=== PATIENT | male | born 1955 | race Caucasian/White ===

== ENCOUNTER → 2016-05-19 | Outpatient (CLI) | payer OTHER, BC ==
[2016-05-19 10:06] LABS: Basophils % (A) 1 %; CH 31.6; CHCM 32.6; Eosinophils # (A) 0.1 k/uL (0-0.7); Eosinophils % (A) 2 %; HCT 46.1 % (39.0-53.0); HDW 2.07; HGB 14.7 gm/dL (13.0-17.5); Luc # (Auto) 0.13; Luc % (Auto) 2; Lymphocytes # (A) 1.1 k/uL (1.0-4.8); Lymphocytes % (A) 19 %; MCHC 31.9 g/dL (31.0-37.0); MCV 97.3 fL (80.0-100.0); Mean Platelet Volume 6.5; Monocytes # (A) 0.4 k/uL (0-1.0); Monocytes % (A) 7 %; Neutrophils % (A) 69 %; RBC 4.73 m/uL (4.30-5.90); RDW 13.4 % (11.5-15.5); WBC 5.8 k/uL (3.8-10.6); WBC (Perox) 5.79
[2016-05-19 10:13] LABS: Partial Thromboplastin Time 24.7 sec (22.0-30.0)
[2016-05-19 10:22] LABS: ALT 30 U/L (21-72); AST 19 U/L (17-59); Alkaline Phosphatase 68 U/L (38-126); Anion Gap 10 mmol/L; Blood Urea Nitrogen 14 mg/dL (9-20); Calcium 9.4 mg/dL (8.4-10.2); Carbon Dioxide 25 mmol/L (22-30); Chloride 106 mmol/L (98-107); Glucose 87 mg/dL (74-99); Non-African American GFR(MDRD) >60 (>60 ml/min/1.73 sqM); Potassium 4.6 mmol/L (3.5-5.1); Sodium 141 mmol/L (137-145); Total Bilirubin 0.9 mg/dL (0.2-1.3)
== END | disposition home or self-care (01) ==
LOC: LABWHC1 09:00
PROVIDERS: ATTEND Family Medicine
DX: Z01.812 Encounter for preprocedural laboratory examination (principal)
CPT/HCPCS: 36415; 80053; 85025; 85610; 85730

== ENCOUNTER → 2016-05-24 | Outpatient (CLI) | payer OTHER, BC | END | disposition home or self-care (01) | LOC: LABPAT 14:20 | PROVIDERS: ATTEND Orthopaedic Surgery | DX: Z01.812 Encounter for preprocedural laboratory examination (principal) | CPT/HCPCS: 87070 ==

== ENCOUNTER 2016-05-31 05:54 | Inpatient (IN) | payer OTHER, BC ==
[2016-05-28 10:42] VITALS: BMI 24.4
--- NOTE | 2016-05-30 18:02 | HP ---
DATE OF ADMISSION: Clive Friedman is a 61-year-old patient seen with symptomatic left hip osteoarthritis. After having options regarding treatment discussed, he elected to proceed with direct anterior left total hip arthroplasty. Consent was obtained. Medical clearance provided by Dr. Bethel Grace. PAST MEDICAL HISTORY: Hypertension. PAST SURGICAL HISTORY: Right ankle surgery, right knee arthroscopy with ACL reconstruction, spine surgery. Daily medications: Simvastatin. ALLERGIES: None reported. SOCIAL HISTORY: Patient denies current tobacco use. Physical evaluation of the left hip: He has limited range of motion with severe pain. There is diffuse weakness about the hip girdle. There is diffuse tenderness about the hip girdle. He has a positive impingement sign. Left lower extremity is 1 inch shorter than the right. Straight-leg raise is negative. His distal neurovascular exam is intact. Radiographs of the left hip reveal severe osteoarthritis. IMPRESSION: Left hip osteoarthritis. PLAN: Direct anterior left total hip arthroplasty.
[~2016-05-31 05:54] MED LIST: ACETAMINOPHEN TAB 500 MG TAB PO ONE; DEXAMETHASONE SOD PHOSPHATE 10 MG/ML 1 ML VIAL IV ONE; HYDROmorphone 1 MG/ML 1 ML SYRINGE IVP PRN; LACTATED RINGERS 1,000 ML IV SCH; MELOXICAM 7.5 MG TAB PO ONE; MIDAZOLAM 2 MG/2 ML VIAL IV PRN; ONDANSETRON 4 MG/2 ML VIAL IVP ONE; TRANEXAMIC ACID 1,000 MG in SODIUM CHLORIDE 0.9% 100 ML IVPB ONE; ceFAZolin 2 GM in SODIUM CHLORIDE 0.9% 100 ML IVPB ONE
[2016-05-31] MEDS ORDERED: LIDOCAINE 1% 20 ML VIAL (10MG/ML) FOR IV START INTRADERMA ONE (06:54)
[2016-05-31 07:05] VITALS: RESP 16
[2016-05-31] MEDS ORDERED: SODIUM CHLORIDE 0.9% 100 ML BAG ONE (07:28)
[2016-05-31] MEDS ORDERED: TRANEXAMIC ACID 1,000 MG/10 ML VIAL ONE (07:28)
[2016-05-31] MEDS ORDERED: PROPOFOL 10 MG/ML 20 ML VIAL IV ONE (07:28)
[2016-05-31] MEDS ORDERED: fentaNYL (PF) 50 MCG/ML 2 ML AMP ONE (07:28)
[2016-05-31] MEDS ORDERED: MIDAZOLAM 2 MG/2 ML VIAL ONE (07:28)
[2016-05-31] MEDS ORDERED: ROPIVACAINE 246.25 MG, EPINEPHrine 0.5 MG, KETOROLAC 30 MG, cloNIDine HCL/PF 80 MCG, WA... MISCELLANE ONE ×5 (08:00)
[2016-05-31] MEDS ORDERED: ceFAZolin 3,000 MG in SODIUM CHLORIDE 0.9% IRRIGATIO 3,000 ML IRRIGATION ONE (08:08)
[2016-05-31] MEDS ORDERED: LACTATED RINGERS 1,000 ML IV ONE (08:56)
[2016-05-31] MEDS ORDERED: NALOXONE 0.4 MG/ML 1 ML VIAL IV PRN (09:38)
[2016-05-31] MEDS ORDERED: HYDROmorphone 1 MG/ML 1 ML SYRINGE IVP PRN ×3 (09:38)
[2016-05-31] MEDS ORDERED: ONDANSETRON 4 MG/2 ML VIAL IVP PRN (09:38)
[2016-05-31] MEDS ORDERED: HYDROcodone/APAP 7.5-325MG 1 EACH TAB PO PRN (09:38)
--- NOTE | 2016-05-31 09:38 | P.OP ---
Date of Procedure: 05/31/16 Preoperative Diagnosis: Left hip osteoarthritis Postoperative Diagnosis: Left hip osteoarthritis Procedure(s) Performed: Direct anterior left total hip arthroplasty Implants: 1. Depuy Corail cementless femoral stem KA size 12 with collar 2. Depuy pinnacle acetabular shell 58 mm 3. Depuy pinnacle polyethylene acetabular liner +4 neutral 36 mm ID 58 mm OD 4. Biolox delta ceramic femoral head +1.536 mm Anesthesia: local, spinal Surgeon: Hay Hope Senior Treasury Analyst #1: Lex Barajas Estimated Blood Loss (ml): 250 Pathology: other (Femoral head) Condition: stable Disposition: PACU Indications for Procedure: 61-year-old patient seen with symptomatic left hip osteoarthritis. After having treatment options discussed, he elected to proceed with left total hip arthroplasty. Operative Findings: See description of procedure Description of Procedure: The patient was taken to the operative suite. Patient underwent a spinal anesthetic by the department of anesthesia. Patient was then transferred to the [place] table. Patient was given preoperative IV antibiotics and TXA. Both lower extremities were placed in standard leg spars. The hip was then prepped and draped in the normal sterile orthopedic fashion. A standard anterior incision was made beginning 3 cm lateral and 1 cm distal to the ASIS extending 10 cm. Dissection was then carried down through the subcutaneous soft tissues down to the fascia overlying the tensor fascia lulu. An incision was now made through the fascia. Careful dissection was taken down exposing the tensor fascia lulu muscle. A Cobra retractor was now placed along the medial femoral neck and a second one along the lateral femoral neck. The venous circumflex vessels were now identified, cauterized and clipped. We identified the anterior hip capsule. An incision was made through the hip capsule along the lateral border. Tag sutures were then placed along the anterior capsule and lateral capsule. We then performed a capsulotomy. Retractors were now placed around the femoral neck itself. A Cobra retractor was now placed along the anterior acetabulum. Good exposure was now noted of the femoral head/neck complex. Residual labrum was debrided out. We placed the extremity into 3 turns of fine traction. We were then able to introduce a skid in between the femoral head and acetabulum. A placed a awl into the femoral head. We took 2 turns of traction off the extremity. Rotation was now released. The femoral head was then dislocated without difficulty. Additional releasing was performed of the capsule. The head was then reduced. All traction was released. A femoral neck cut was now made with a sagittal saw. It was completed with an osteotome at the lateral neck area. The femoral head was now removed without difficulty. There was advanced osteoarthritis of both the femoral head and acetabulum The extremity was now rotated to 60 of external rotation. It was locked in position. Residual labrum was now debrided out. Serial reaming was performed of the acetabulum. Once we reached the appropriate size and a trial was position and fit nicely. The appropriate size was now chosen opened and made available. The wound was irrigated with pulse lavage mechanical irrigation. It was introduced into the acetabulum without difficulty. The C-arm/fluoroscopy was now brought into the operative field. We made sure we had a true AP pelvic view. We now under direct C-arm/ fluoroscopy introduced into the acetabular component with appropriate version and inclination. It was well seated and stable. The C-arm was pulled back. An appropriate liner was introduced and clicked into position. It was felt to be stable. At this point retractors were removed. The extremity was now placed into 125 external rotation with no traction. The leg was now dropped to the ground and adducted. Appropriate retractors were now positioned along the proximal femur. We also placed our femoral look into position. Additional capsular releasing was performed to gain access to the proximal femur. We now used a box osteotome. A canal finder was now utilized. Serial broaching was now performed until we reached the appropriate size with good overall rotational stability. Appropriate calcar planing was performed. A trial head/ neck was placed into position. The hip was now reduced. The C-arm/fluoroscopy was brought back into the operative field. A spot film was obtained of the nonoperative hip. A spot film was obtained of the trial components. Overlays were performed, we noted good overall alignment and positioning for determining leg length. The C-arm/fluoroscopy was pulled back. Retractors were repositioned and the hip was dislocated. The leg was again taken down to the ground and adducted. Appropriate retractors were repositioned as well as the femoral hook. All trial components were removed. The femoral implant was opened along with the femoral head. The wound was irrigated with pulse lavage mechanical irrigation. The femoral implant was introduced with good purchase and fixation noted. The deep soft tissues were infiltrated with local analgesic. The femoral head was introduced with good positioning and fixation noted. Retractors were now removed. The hip was now reduced. There appeared be good positioning of the hip. This was confirmed via fluoroscopy and a spot image was obtained to document this. A second gram of TXA was given. Bipolar cautery had been utilized intermittently through the procedure for hemostasis. The wound was irrigated copiously with pulse lavage mechanical irrigation. The superficial soft tissues were infiltrated local analgesic. The fascia was repaired with Vicryl suture. The subcutaneous soft tissues were repaired in layers with Vicryl suture. The skin was approximated with pernio/Dermabond. Sterile dressings were applied. Patient was then awakened, transferred to a bed and taken to recovery in stable condition. Hamzah BASSETT assisted with the procedure.
--- NOTE | 2016-05-31 09:50 | FL ---
EXAMINATION TYPE: FL guidance operating room, XR Hip Limited one view LT DATE OF EXAM: 05/31/2016 9:18 AM COMPARISON: NONE HISTORY: 61-year-old male anterior left hip replacement FINDINGS: Single anterior intraoperative fluoroscopic image after placement of left hip total arthroplasty. Ove rall alignment appears grossly anatomic. FLUOROSCOPY Fluoroscopy time of 20 seconds was used during left hip replacement. 1 image/s document/s the proced ure. IMPRESSION: Intraoperative fluoroscopy as above.
[2016-05-31] MEDS: MULTIVITAMINS, THERA 1 EACH TAB PO SCH (10:57)
[2016-05-31] MEDS: LACTATED RINGERS 1,000 ML IV SCH ×2 (11:00→23:19)
[2016-05-31] MEDS: traMADol 50 MG TAB PO SCH ×3 (12:06→21:34)
[2016-05-31] MEDS: ceFAZolin 2 GM in SODIUM CHLORIDE 0.9% 100 ML IVPB SCH (13:00)
[2016-05-31] MEDS: HYDROcodone/APAP 7.5-325MG 1 EACH TAB PO PRN ×2 (14:39→23:17)
--- NOTE | 2016-05-31 16:34 | P.DS ---
Providers Date of admission: 05/31/16 05:54 Expected date of discharge: 06/01/16 Attending physician: Hay Hope Consults: 05/31/16 09:38 Consult Physician Routine Consulting Provider: Manjit Perez Consult Reason/Comments: Medical management Do you want consulting provider notified?: Yes Primary care physician: Bethel [facility]izcaino [facility] Course: Date of admission: 05/31/2016 Date of discharge: 06/01/2016 Admission diagnosis: Status post direct anterior left total hip arthroplasty Discharge diagnosis: Same Attending physician: Dr. Hope Surgical procedures: Direct anterior left total hip arthroplasty Brief history: Patient is a 61-year-old male with a history of progressive primary left hip osteoarthritis. At this point patient has failed conservative treatment measures and has opted to proceed with a elective left total hip arthroplasty. Hospital course: Details of patient's surgery can be found in operative report. Patient tolerated the procedure well and was subsequently transported to orthopedic floor. Patient's orthopeidc and medical care was provided daily. Patient had daily laboratory tests performed for evaluation of overall blood counts. Patient had daily physical therapy to include strengthening range of motion as well as education with walker ambulation. Patient was treated with Lovenox for their postoperative DVT prophylaxis during their inpatient stay. Patient was noted to have a relatively uneventful postoperative course. Patient reported satisfactory pain control with oral pain medications by postoperative day 0. Patient showed satisfactory progress with physical therapy. Patient moved steadily through the program and had no difficulty meeting the goals by postoperative day 1. Given patient's otherwise satisfactory course and having met physical therapy goals, plan is to discharge patient home on postoperative day 1. Discharge condition/disposition: Patient will be discharged home in stable condition. Discharge medications: Instructions are given on resumption of patient's normal daily medications per primary care recommendation, in addition patient will be prescribed [place] 7.5 mg/325 mg, tramadol 50 mg, Colace 100 mg, Pepcid 20 mg, aspirin 325 mg. Discharge instructions: 1. Wound care and infection precautions, keep incision dry and covered while showering, no lotions, creams, moisturizers. No soaking, tubs, pools, hottubs. Do not scrub over the incision. 2. Weight-bear as tolerated with walker / cane until follow-up. 3. Ice and elevate when necessary. Do not exceed 20 minutes per hour with ice pack. 4. Utilize compression sleeve until seen at first follow up appointment. 5. Visiting nursing care. 6. Home physical therapy. 7. Pain meds and anticoagulants per prescription. 8. Pain medication has potential to cause constipation. Increase oral fluid and fiber intake. Contact primary care provider if you have not had a bowel movement within 48 hours after discharge 9. No anti-inflammatory medication until discussed at first post operative visit, this including Motrin, Aleve, Mobic, Diclofenac. 10. Follow up in office at 2 weeks postop with Hamzah Barajas PA-C 11. Follow up with your primary care doctor 7-10 days after discharge. 12. Contact [facility] with any questions, . Procedures: Direct anterior total left hip arthroplasty Patient Condition at Discharge: Good Plan - Discharge Summary New Discharge Prescriptions: Aspirin 325 mg PO BID #60 tab Docusate [Colace] 100 mg PO DAILY #30 capsule Famotidine [Pepcid] 20 mg PO DAILY #30 tablet HYDROcodone/APAP 7.5-325MG [[place]end[place] 7.5] 1 - 2 each PO Q6HR PRN #40 tab PRN Reason: Pain traMADol HCl [Ultram] 50 mg PO Q6H PRN #40 tab PRN Reason: Pain Discharge Medication List Lisinopril [Prinivil] 5 mg PO DAILY 01/13/16 [History] Multivitamins, Thera [Multivitamin] 1 tab PO DAILY 01/13/16 [History] Simvastatin [Zocor] 10 mg PO DAILY 01/13/16 [History] Glucosamine Sulfate 500 mg PO DAILY 05/28/16 [History] Aspirin 325 mg PO BID #60 tab 06/01/16 [Rx] Docusate [Colace] 100 mg PO DAILY #30 capsule 06/01/16 [Rx] Famotidine [Pepcid] 20 mg PO DAILY #30 tablet 06/01/16 [Rx] HYDROcodone/APAP 7.5-325MG [[place] 7.5] 1 - 2 each PO Q6HR PRN #40 tab 06/01/16 [ Rx] traMADol HCl [Ultram] 50 mg PO Q6H PRN #40 tab 06/01/16 [Rx] Follow up Appointment(s)/Referral(s): Lex Barajas PAC [[facility]] - 06/16/16 2:10 pm Activity/Diet/Wound Care/Special Instructions: Orthopedic Discharge Instructions: 1. Wound care and infection precautions, keep incision dry and covered while showering, no lotions, creams, moisturizers. No soaking, pools, hot tubs. Do not scrub over incision. 2. Weight-bear as tolerated with walker / cane until follow-up. 3. Ice and elevate when necessary. Do not exceed 20 minutes per hour with ice pack. 4. Utilize compression sleeve until seen at first follow up appointment. 5. Visiting nursing care. 6. Home physical therapy. 7. Pain meds and anticoagulants per prescription. 8. Pain medication has potential to cause constipation. Increase oral fluid and fiber intake. Contact primary care provider if you have not had a bowel movement within 48 hours after discharge. 9. No anti-inflammatory medication until discussed at first post operative visit, this including Motrin, Aleve, Mobic, Diclofenac. 10. Follow up in office at 2 weeks postop with Hamzah Barajas PA-C 11. Follow up with your primary care doctor 7-10 days after discharge. 12. Contact [facility] with any questions, . [facility]- walker to be delivered to room from [facility] - Discharge Disposition: HOME WITH HOME HEALTH SERVICES
[2016-05-31] MEDS ORDERED: SENNOSIDES-DOCUSATE SODIUM 1 EACH TAB PO SCH (21:00)
[2016-06-01] MEDS: ceFAZolin 2 GM in SODIUM CHLORIDE 0.9% 100 ML IVPB SCH (00:54)
[2016-06-01] MEDS: hydrOXYzine PAMOATE 25 MG CAP PO PRN ×2 (07:08→14:15)
[2016-06-01] MEDS: HYDROcodone/APAP 7.5-325MG 1 EACH TAB PO PRN ×2 (07:08→14:14)
--- NOTE | 2016-06-01 07:29 | CONS ---
DATE OF CONSULTATION: 05/31/2016 REASON FOR CONSULTATION: Medical management requested Dr. Hope. CONSULTATION: This is a pleasant 60-year-old gentleman of Dr. Grace. Has undergone a left total hip arthroplasty. Pain is well controlled. Actually had his supper. Sitting up, no chest pain or shortness of breath. No nausea or vomiting. Patient's chronic stable medical conditions include hyperlipidemia, hypertension, arthritis in other joints, including the thumb and the knee. REVIEW OF SYSTEMS: CONSTITUTIONAL: None. HEENT: None. RESPIRATORY: None. CARDIOVASCULAR: None. GASTROINTESTINAL: None. GENITOURINARY: None. MUSCULOSKELETAL: As above including pain in the thumb and the right knee. DERMATOLOGICAL: None. HEMATOLOGICAL: None. LYMPHATIC: None. PSYCHIATRY: None. NEUROLOGICAL: Occasionally BPPV symptoms. Past medical history of hypertension, hyperlipidemia, osteoarthritis, BPPV. PAST SURGICAL HISTORY: Back surgery, orthopedic surgery, tonsillectomy, ACL right knee with 2 screws, right ankle fracture with pin and screws, broken, no surgery. SOCIAL HISTORY: Patient is . Smoked a pack half for 20 years; stopped 15 years ago. 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 FAMILY HISTORY: Breast cancer. HOME MEDICATIONS: 1. Zocor 10 mg p.o. daily. 2. Naproxen 440 mg p.o. b.i.d. p.r.n. 3. Multivitamin 1 tablet p.o. daily. 4. Prinivil 5 mg p.o. daily. 5. Glucosamine 500 mg p.o. daily. 6. Aspirin 81 mg p.o. daily. ALLERGIES: None. On examination, temperature 97.9, pulse 67, respirations 16, blood pressure 135/78, pulse ox 98% on room air. GENERAL APPEARANCE: Average build, sitting up in bed, comfortable, propped up, awake, comfortable. EYES: Pupils equal. Conjunctivae normal. HEENT: Oral cavity normal. NECK: JVD not raised. Mass not palpable. RESPIRATORY: Effort normal. Lungs are clear. CARDIOVASCULAR: First and second sounds normal. No edema. ABDOMEN: Soft, nontender. Liver and spleen not palpable. LYMPHATIC: No lymph node palpable in the neck or axillae. PSYCHIATRY: Alert and oriented x3. Mood and affect normal. NEUROLOGICAL: Pupils equal. Cranial nerves grossly intact. Power and sensation grossly intact. MUSCULOSKELETAL: Evidence of osteoarthritis in the right knee. Left knee has dressing in place. INVESTIGATIONS: No blood work from today. ASSESSMENT: 1. Left total hip arthroplasty. 2. Essential hypertension. 3. Hyperlipidemia. 4. Primary osteoarthritis of the right knee. 5. Benign paroxysmal positional vertigo history. PLAN: Patient's pain is controlled. Home medications will be resumed. Getting IV fluids. Patient on DVT prophylaxis with Lovenox. Care was discussed with the patient. Patient should follow up with Dr. Grace on discharge. Thank you, Dr. Hope.
[2016-06-01 07:34] LABS: Basophils % (A) 0 %; CH 31.3; CHCM 31.9; Eosinophils # (A) 0.1 k/uL (0-0.7); Eosinophils % (A) 1 %; HCT 37.2 % (39.0-53.0); HDW 2.07; HGB 11.8 gm/dL (13.0-17.5); Luc # (Auto) 0.12; Luc % (Auto) 1; Lymphocytes # (A) 1.1 k/uL (1.0-4.8); Lymphocytes % (A) 13 %; MCH 31.3 pg (25.0-35.0); MCHC 31.7 g/dL (31.0-37.0); MCV 98.6 fL (80.0-100.0); Mean Platelet Volume 6.4; Monocytes # (A) 0.6 k/uL (0-1.0); Monocytes % (A) 7 %; Neutrophils # (A) 6.6 k/uL (1.3-7.7); Neutrophils % (A) 78 %; RBC 3.77 m/uL (4.30-5.90); RDW 12.9 % (11.5-15.5); WBC 8.4 k/uL (3.8-10.6); WBC (Perox) 9.05
[2016-06-01] MEDS ORDERED: ATORVASTATIN 10 MG TAB PO SCH (09:00)
[2016-06-01] MEDS ORDERED: FAMOTIDINE 20 MG TAB PO SCH (09:00)
[2016-06-01] MEDS ORDERED: ENOXAPARIN 40 MG/0.4 ML SYRINGE SQ SCH (09:00)
[2016-06-01] MEDS ORDERED: MELOXICAM 7.5 MG TAB PO SCH (09:00)
[2016-06-01] MEDS ORDERED: LISINOPRIL 5 MG TAB PO SCH (09:00)
[2016-06-01] MEDS: traMADol 50 MG TAB PO SCH ×2 (09:46→13:17)
[2016-06-01] MEDS: LACTATED RINGERS 1,000 ML IV SCH (11:28)
--- NOTE | 2016-06-01 11:44 | P.PN ---
Subjective Principal diagnosis: Status post left total hip arthroplasty Patient is seen today resting in his hospital chair, he appears to be in no acute distress, his pain is controlled. He's been ambulating well on his own. Urinary cath has been removed. Denies headaches, lightheadedness, chest pain, shortness of breath. Objective - Vital Signs Vital signs: Vital Signs Temp 96.8 F L 06/01/16 08:13 Pulse 82 06/01/16 08:13 Resp 16 06/01/16 08:13 BP 165/77 06/01/16 08:13 Pulse Ox 97 06/01/16 08:13 Intake & Output 05/31/16 06/01/16 06/01/16 18:59 06:59 18:59 Intake Total 1201 590 Output Total 800 1100 1150 Balance 401 -510 -1150 Weight 83.915 kg Intake: IV 1201 Oral 590 Output: Urine 550 1100 1150 Uretheral (Carvalho) 1100 700 Estimated Blood Loss 250 Other: Voiding Method Indwelling Catheter Indwelling Catheter - Exam Left lower extremity: Incisions clean, dry and intact. Minimal soft tissue swelling present around the head. Anterior posterior arms of the upper leg are soft, calf is supple no tenderness with palpation. Plantar flexion, dorsiflexion, EHL, FHL are intact. Sensory exam to light touch throughout the extremities intact, dorsal pedis pulses 2+. - Labs CBC & Chem 7: 06/01/16 06:49 Labs: Abnormal Lab Results - Last 24 Hours (Table) 06/01/16 Range/Units 06:49 RBC 3.77 L (4.30-5.90) m/uL Hgb 11.8 L (13.0-17.5) gm/dL Hct 37.2 L (39.0-53.0) % Assessment and Plan Plan: Assessment: 1. Postop day #1 status post left total hip arthroplasty Plan: 1. Pain control, we'll discharge home on oral medications 2. Wound care was discussed with patient 3. Home therapy and nursing 4. GI and DVT prophylaxis, we'll discharge home on aspirin 325 mg twice a day 5. Medical recommendations 6. Discharge planning: We'll discharge patient home likely today Time with Patient: Less than 30
[2016-06-01] MEDS: MULTIVITAMINS, THERA 1 EACH TAB PO SCH (11:51)
[2016-06-01 15:26] VITALS: BP 131/73; TEMP 98.4
[2016-06-01 16:21] VITALS: PULSE 79
[2016-06-01] MEDS ORDERED: TEMAZEPAM 15 MG CAP PO PRN (22:00)
--- NOTE | 2016-06-02 22:04 | PN ---
DATE OF SERVICE: 06/01/2016 PRESENTING COMPLAINT: Left hip surgery. INTERVAL HISTORY: This patient was seen by me on 06/01/16, status post left hip surgery. Pain is doing much better. Tolerating his diet. Up and about. Tolerating ( ) no chest pain. Review systems done for constitutional, cardiovascular, GI, pulmonary, musculoskeletal; relevant findings as above. Current medications are reviewed. On examination, temperature 96.8, pulse 82, respirations 16, blood pressure 165/77, pulse ox 97%. GENERAL APPEARANCE: Sitting up, comfortable. EYES: Pupils equal. Conjunctivae normal. NECK: JVD not raised. Mass not palpable. RESPIRATORY: Effort normal. Lungs are clear. CARDIOVASCULAR: First and second sounds normal. No edema. ABDOMEN: Soft, nontender. Liver and spleen not palpable. PSYCHIATRY: Alert and oriented x3. Mood and affect normal. INVESTIGATIONS: Hemoglobin 11.8. ASSESSMENT: 1. Left total hip arthroplasty. 2. Essential hypertension. 3. Hyperlipidemia. 4. Primary osteoarthritis of the right knee. 5. Benign paroxysmal positional vertigo, history of. PLAN: Continues to do well. Continue current medication and treatment plan.
== END 2016-06-01 17:30 | disposition home health service (06) | DRG 470 ==
LOC: 2ORMAIN 05:54 → 3SUR 09:58
PROVIDERS: ADMIT Orthopaedic Surgery; ATTEND Orthopaedic Surgery
PROC: 0SRB04A Replacement of Left Hip Joint with Ceramic on Polyethylene Synthetic Substitute, Uncemented, Open Approach (ICD-10-PCS; principal; 2016-05-31 07:30)
DX: M16.12 Unilateral primary osteoarthritis, left hip (principal); I10 Essential (primary) hypertension; M25.852 Other specified joint disorders, left hip; M21.752 Unequal limb length (acquired), left femur; R53.1 Weakness; M19.049 Primary osteoarthritis, unspecified hand; E78.5 Hyperlipidemia, unspecified; H81.10 Benign paroxysmal vertigo, unspecified ear; M17.11 Unilateral primary osteoarthritis, right knee; Z80.3 Family history of malignant neoplasm of breast; Z79.899 Other long term (current) drug therapy; Z87.891 Personal history of nicotine dependence; Z79.82 Long term (current) use of aspirin; Z79.1 Long term (current) use of non-steroidal anti-inflammatories (NSAID); Z87.81 Personal history of (healed) traumatic fracture
CPT/HCPCS: 73501; 85025; 86850; 86900; 86901; 88300

== ENCOUNTER → 2017-11-14 | Outpatient (CLI) | payer OTHER, BC ==
--- NOTE | 2017-11-14 22:43 | MR ---
EXAMINATION TYPE: MR shoulder RT wo con DATE OF EXAM: 11/14/2017 COMPARISON: Outside shoulder x-ray November 01, 2017 HISTORY: Pain in right shoulder for one year. History of recent injury 3-4 weeks ago. TECHNIQUE: Multiplanar, multisequence imaging of the right shoulder is performed without contrast. FINDINGS: Rotator Cuff: There is a full-thickness retracted tear supraspinatus tendon retracted roughly 1.5 cm from humeral head attachment paracoronal image 14. Infraspinatus tendon is intact. There is some incr eased signal along the articular surface noted. Subscapularis tendon is intact. Rotator cuff muscle b ulk is preserved. Acromioclavicular Joint: There is abnormal AC joint widening with inferior margin of the distal clavi marisol roughly 5 to 6 mm superiorly displaced inferior margin of acromion. Suspect old injury. Glenohumeral Joint: There is moderate glenohumeral joint effusion. Moderate to severe Joint space los s is present. No significant spurring is seen. Labrum: Increased signal and blunted labrum likely reflects degenerative tear. Biceps Tendon: The long head of biceps is identified in normal location within bicipital groove. Medi al displacement is present. Intra-articular portion is not well seen. Bone marrow signal: No focal abnormal marrow signal is appreciated. Other: Focal fluid anterior to acromion is noted. Increased fluid subdeltoid/subacromial bursa is pre sent. IMPRESSION: Full-thickness retracted tear of supraspinatus tendon. Long head biceps tendon dislocatio n. Suspect remote AC joint separation injury. Glenohumeral joint arthropathy as detailed above.
== END | disposition home or self-care (01) ==
LOC: RADMRIMAIN 10:55
PROVIDERS: ATTEND Orthopaedic Surgery
DX: S46.811A Strain of other muscles, fascia and tendons at shoulder and upper arm level, right arm, initial encounter (principal); M19.011 Primary osteoarthritis, right shoulder

== ENCOUNTER → 2018-01-09 | Outpatient (CLI) | payer OTHER, BC ==
[2018-01-09 08:57] LABS: Basophils % (A) 1 %; Eosinophils # (A) 0.2 k/uL (0-0.7); Eosinophils % (A) 4 %; HCT 43.4 % (39.0-53.0); Lymphocytes # (A) 1.3 k/uL (1.0-4.8); Lymphocytes % (A) 26 %; MCHC 32.3 g/dL (31.0-37.0); Mean Platelet Volume 6.2; Monocytes # (A) 0.3 k/uL (0-1.0); Monocytes % (A) 7 %; Neutrophils # (A) 3.1 k/uL (1.3-7.7); Neutrophils % (A) 61 %; Platelet Count 279 k/uL (150-450); RBC 4.53 m/uL (4.30-5.90); RDW 12.9 % (11.5-15.5); WBC 5.1 k/uL (3.8-10.6)
[2018-01-09 09:16] LABS: Potassium 4.7 mmol/L (3.5-5.1)
== END ==
LOC: LABPAT 08:09
PROVIDERS: ATTEND Orthopaedic Surgery
DX: Z01.818 Encounter for other preprocedural examination (principal); Z01.812 Encounter for preprocedural laboratory examination; M75.41 Impingement syndrome of right shoulder
CPT/HCPCS: 80051; 85025; 93005

== ENCOUNTER 2018-01-18 07:35 | Day surgery (SDC) | payer OTHER, BC ==
--- NOTE | 2018-01-17 14:07 | HP ---
HISTORY AND PHYSICAL DATE OF SERVICE: 01/18/2018 Clive Friedman is a 62-year-old patient seen with progressive right shoulder pain. After treatment options were discussed with him. He elected to proceed with right shoulder arthroscopy. Consent regarding the procedure was obtained. PAST MEDICAL HISTORY: Hypertension, hyperlipidemia. PAST SURGICAL HISTORY: Right knee arthroscopy, nasal surgery, spinal surgery. DAILY MEDICATIONS: 1. Aspirin. 2. Glucosamine. 3. Simvastatin. ALLERGIES: None reported. SOCIAL HISTORY: Patient denies tobacco use. PHYSICAL EVALUATION RIGHT SHOULDER: Flexion 130 degrees, abduction 120 degrees, external rotation is 40 degrees with weakness. There is tenderness along the anterolateral acromion rotator cuff insertion site. Impingement sign is positive at 90 degrees. Drop-arm sign is positive. Distal neurovascular exam is intact. RADIOGRAPHS OF THE RIGHT SHOULDER: Revealed a type 2 anterior acromion. Cystic changes of the tuberosity. A right shoulder MRI revealed retracted rotator cuff tear, biceps tendon dislocation, moderate glenohumeral osteoarthritis. IMPRESSION: 1. Right shoulder impingement with rotator cuff tear. 2. Hypertension. 3. Hyperlipidemia. PLAN: Right shoulder arthroscopy with subacromial decompression, possible arthroscopic rotator cuff repair and debridement. MMODL / IJN: [id number] /
[~2018-01-18 07:35] MED LIST changes: -ACETAMINOPHEN TAB 500 MG TAB PO ONE; +LIDOCAINE 1% 20 ML VIAL (10MG/ML) FOR IV START INTRADERMA PRN; -MELOXICAM 7.5 MG TAB PO ONE; -MIDAZOLAM 2 MG/2 ML VIAL IV PRN; +SCOPOLAMINE 1.5MG/72HR PATCH TRANSDERM ONE; -TRANEXAMIC ACID 1,000 MG in SODIUM CHLORIDE 0.9% 100 ML IVPB ONE; -ceFAZolin 2 GM in SODIUM CHLORIDE 0.9% 100 ML IVPB ONE; +ceFAZolin IN SWFI 2 GM/20 ML SYRINGE IVP ONE
[2018-01-18] MEDS ORDERED: fentaNYL (PF) 50 MCG/ML 2 ML AMP IV ONE (08:48)
[2018-01-18] MEDS ORDERED: MIDAZOLAM 2 MG/2 ML VIAL IV ONE (08:48)
--- NOTE | 2018-01-18 09:56 | P.ONQ ---
Anesthesiology Proc Note - PNB - Peripheral Nerve Block Performed Right Interscalene Single Time Out Performed: Yes Procedure Start Time: 08:48 Indication: Acute Post-Operative Pain Specifically requested for management of pain by DrPablo: Hay Hope Sedation Type: Awake Preparation: Sterile Prep Position: Supine Catheter: None Needle Types: Other (see comment) (Pajunk) Needle Size: 50mm (2") Needle Gauge: 21 Technique: Ultrasound Injectate: 0.5% Ropivacaine (see comment for volume) (25cc) Blood Aspirated: No Pain Paresthesia on Injection Noted: No Resistance on Injection: Normal Events: Uneventful and Well Tolerated
[2018-01-18] MEDS ORDERED: ROPIVACAINE 5 MG/ML 30 ML VIAL ONE (10:22)
[2018-01-18] MEDS ORDERED: PROPOFOL 10 MG/ML 20 ML VIAL IV ONE (10:22)
[2018-01-18] MEDS ORDERED: ePHEDrine SULFATE/0.9% NACL/PF 50 MG/5 ML SYRINGE IV ONE (10:22)
[2018-01-18] MEDS ORDERED: fentaNYL (PF) 50 MCG/ML 2 ML AMP ONE (10:22)
[2018-01-18] MEDS ORDERED: SUCCINYLCHOLINE CHLORIDE VIAL 200 MG/10 ML VIAL IV ONE (10:22)
[2018-01-18] MEDS ORDERED: LIDOCAINE 1% INJ 10MG/ML (20 ML MDV) ONE (10:22)
[2018-01-18] MEDS ORDERED: MIDAZOLAM 2 MG/2 ML VIAL ONE (10:22)
[2018-01-18] MEDS ORDERED: PHENYLEPHRINE-0.9% NACL SYG 1 MG/10 ML SYRINGE ONE (10:22)
--- NOTE | 2018-01-18 12:07 | P.OP ---
Date of Procedure: 01/18/18 Preoperative Diagnosis: Right shoulder impingement Postoperative Diagnosis: 1. Right shoulder rotator cuff tear 2. Right shoulder impingement 3. Right shoulder superficial labral tear Procedure(s) Performed: 1. Right shoulder arthroscopic rotator cuff repair 2. Right shoulder arthroscopic subacromial decompression 3. Right shoulder arthroscopic debridement labral tear Implants: 4Arthrex swivel lock anchors Anesthesia: GETA, regional (Interscalene block) Surgeon: Hay Hope Editor Producer #1: Lex Barajas Estimated Blood Loss (ml): 10 Pathology: none sent Condition: stable Disposition: PACU Indications for Procedure: 62-year-old patient seen with progressive right shoulder pain. After treatment options were discussed, he elected to proceed with arthroscopy. Operative Findings: see description of procedure Description of Procedure: Patient underwent an interscalene block by department of anesthesia. The patient was then taken to the operative suite. The patient underwent a general anesthetic by the department of anesthesia. The patient was placed into a lateral position and secured. There was appropriate padding of the bony prominence. Right shoulder was then prepped and draped in normal sterile orthopedic fashion. We placed the extremity in 10 pounds of longitudinal traction. A posterior incision was now made for a posterior working portal site. The trocar and cannula were inserted into the glenohumeral joint. Arthroscopy was initiated. Spinal needle was now inserted anteriorly, to ascertain the anterior working portal site. An incision was now made in that area, a trocar was inserted followed by a probe. There was an obvious rotator cuff tear visualized from glenohumeral side. It was a long head biceps tendon tear. There was some superficial tearing of the superior and anterior labrum. There were grade 1 chondromalacia changes of the humeral head and grade 1/2, she changes of the glenoid fossa. I debrided the superficial labral tear down to stable tissue. The residual labrum was stable. Instruments were now removed from glenohumeral side. Utilizing the posterior working portal site, the trocar and cannula were inserted into the subacromial space. Arthroscopy initiated. I made an incision 2 fingerbreadths lateral to the acromion. I introduced my trocar followed by my ArthroCare ablator. I now began ablating thick subacromial bursal tissue, which exposed the undersurface of the anterior acromion. There was diminished subacromial space. There was a very prominent anterior acromion. A motorized bur was introduced and a subacromial decompression was performed. There was good decompression of subacromial space noted. The before meals joint was visualized and there was evidence of a chronic before meals separation. I turned my attention to the rotator cuff. There was a 2.5 cm rotator cuff tear. I debrided the margins getting down to stable tendon tissue. I introduced my motorized bur and abraded the footprint area, getting some petechial bleeding. I now made an accessory portal site off the lateral aspect of the acromion. I punched 2 holes medial for medial row fixation with the assistance of Hamzah BASSETT carefully tapping the punch with a mallet as I held the punch and the camera. I now introduced both anchors into the pre-punched holes and Hamzah BASSETT tapped them with the mallet as I held anchors and the camera. Hamzah BASSETT now screwed the anchors in place a while I held the anchor guide and camera. All 8 limbs of suture were now passed through good bites of rotator cuff tendon. I now punched 2 holes for lateral row fixation again I held the punch and camera while Hamzah BASSETT used a mallet to tap in the punch. We now passed sutures through both anchors and individually I introduced the anchors into the pre-punch holes I held the anchor guide in position with one hand holding the camera with the other hand while Hamzah BASSETT tensioned the sutures and screwed in the anchors one at a time. All residual suture limbs were now clipped. We had good compression of the tendon along the entire footprint. I injected 1 mL Renue intra-articular. Instruments now removed from the portal sites. All portal sites were approximated with nylon suture. Sterile dressings were applied followed by a shoulder immobilizer. Lex BASSETT assisted in this complex case. The patient was awakened, transferred to a bed, and taken to recovery in stable condition.
[2018-01-18 12:10] VITALS: TEMP 97.8
[2018-01-18 12:16] VITALS: RESP 16
[2018-01-18 13:48] VITALS: BP 143/82; PULSE 82
== END 2018-01-18 14:24 | disposition home or self-care (01) ==
LOC: OR 07:35
PROVIDERS: ATTEND Orthopaedic Surgery
DX: M75.101 Unspecified rotator cuff tear or rupture of right shoulder, not specified as traumatic (principal); M75.41 Impingement syndrome of right shoulder; S43.491A Other sprain of right shoulder joint, initial encounter; S46.111A Strain of muscle, fascia and tendon of long head of biceps, right arm, initial encounter; X58.XXXA Exposure to other specified factors, initial encounter; M94.211 Chondromalacia, right shoulder; M19.011 Primary osteoarthritis, right shoulder; I10 Essential (primary) hypertension; E78.5 Hyperlipidemia, unspecified; Z79.82 Long term (current) use of aspirin; Z79.899 Other long term (current) drug therapy; Z87.891 Personal history of nicotine dependence
CPT/HCPCS: 64415; 29827; 29826; C1713 ×2; C1765; J2250; J0330; J1100; J2405; J2001; J3010; J2795; J2370; J2704; J0690

== ENCOUNTER → 2019-02-02 | Outpatient (CLI) | payer BC, MEDICARE ==
--- NOTE | 2019-02-02 07:48 | US ---
EXAMINATION TYPE: US duplex aorta DATE OF EXAM: 02/02/2019 COMPARISON: NONE CLINICAL HISTORY: Z13.6 screening for cardiovascular disorders. EXAM MEASUREMENTS: Abdominal Aorta: Proximal: 2.8cm by 2.8 cm. Mid: 1.8cm by 2.1 cm Distal: 1.8 by 1.8 cm. Bifurcation: Rt: 1.0cm Lt:1.0cm No AAA, small portion obscured by overlying bowel gas. Aorta is successfully scanned through the bifurcation. IMPRESSION: No ultrasound evidence for greater than 3.0 cm AAA.
== END | disposition home or self-care (01) ==
LOC: RADUSWWP 07:12
PROVIDERS: ATTEND Family Medicine
DX: Z13.6 Encounter for screening for cardiovascular disorders (principal)
CPT/HCPCS: 93979

== ENCOUNTER → 2019-11-13 | Outpatient (CLI) | payer BC, MEDICARE | END | disposition home or self-care (01) | LOC: LABPAT 09:28 | PROVIDERS: ATTEND Orthopaedic Surgery | DX: Z01.818 Encounter for other preprocedural examination (principal); M17.11 Unilateral primary osteoarthritis, right knee | CPT/HCPCS: 87070 ==

== ENCOUNTER 2019-11-26 08:16 | Inpatient (IN) | payer BC, MEDICARE ==
[2019-11-21 16:16] VITALS: BMI 22.4
--- NOTE | 2019-11-25 10:54 | HP ---
HISTORY AND PHYSICAL REASON FOR ADMISSION: Surgery is 11/26/2019 Clive Friedman is a 64-year-old gentleman seen with symptomatic right knee osteoarthritis. We discussed options for treatment. He elected to proceed with right total knee arthroplasty. Consent was obtained. Clearance was provided by Dr. Bethel Grace. PAST MEDICAL HISTORY: Hyperlipidemia, hypertension. PAST SURGICAL HISTORY: Right knee arthroscopy, spine surgery. MEDICATIONS: Aspirin, simvastatin, lisinopril, multivitamin. ALLERGIES: None. SOCIAL HISTORY: Denies current tobacco use. PHYSICAL EXAMINATION: Evaluation of the right knee: His range of motion is 0-125. He has tenderness along the lateral joint line. Lateral crepitus with range of motion. Patellar crepitus with range of motion. There is a genu valgum deformity. His ligaments appear stable. Hip rotation without pain. Distal neurovascular exam is intact. RADIOGRAPHS: Radiographs of the right knee revealed severe lateral osteoarthritis. Metallic screw is noted within the proximal tibia and distal femur consistent with previous ACL reconstruction. IMPRESSION: 1. Right knee osteoarthritis. 2. Hypertension. 3. Hyperlipidemia. PLAN: Right total knee arthroplasty. Surgery scheduled 11/26/2019. MMODL / IJN: [id number] /
[~2019-11-26 08:16] MED LIST changes: +ACETAMINOPHEN TAB 500 MG TAB PO ONE; -DEXAMETHASONE SOD PHOSPHATE 10 MG/ML 1 ML VIAL IV ONE; -HYDROmorphone 1 MG/ML 1 ML SYRINGE IVP PRN; -LACTATED RINGERS 1,000 ML IV SCH; -LIDOCAINE 1% 20 ML VIAL (10MG/ML) FOR IV START INTRADERMA PRN; +MELOXICAM 7.5 MG TAB PO ONE; -ONDANSETRON 4 MG/2 ML VIAL IVP ONE; +ROPIVACAINE 246.25 MG, EPINEPHrine 0.5 MG, KETOROLAC 30 MG, cloNIDine HCL/PF 80 MCG, WA... MISCELLANE ONE; -SCOPOLAMINE 1.5MG/72HR PATCH TRANSDERM ONE; +TRANEXAMIC ACID 1,000 MG in SODIUM CHLORIDE 0.9% 100 ML IVPB ONE; -ceFAZolin IN SWFI 2 GM/20 ML SYRINGE IVP ONE
[2019-11-26] MEDS ORDERED: ONDANSETRON 4 MG/2 ML VIAL IVP ONE (08:31)
[2019-11-26] MEDS ORDERED: HYDROmorphone 0.5 MG/0.5 ML SYRINGE IVP PRN ×2 (08:31→12:20)
[2019-11-26] MEDS ORDERED: DEXAMETHASONE SOD PHOSPHATE 10 MG/ML 1 ML VIAL IV ONE (08:31)
[2019-11-26] MEDS ORDERED: MIDAZOLAM 2 MG/2 ML VIAL IV PRN (08:31)
[2019-11-26] MEDS: LACTATED RINGERS 1,000 ML IV SCH ×3 (09:05→20:50)
[2019-11-26] MEDS ORDERED: LIDOCAINE 1% (10MG/ML) FOR IV START INTRADERMA ONE (09:05)
[2019-11-26] MEDS ORDERED: SCOPOLAMINE 1.5MG/72HR PATCH TRANSDERM ONE (09:27)
[2019-11-26] MEDS ORDERED: fentaNYL (PF) 50 MCG/ML 2 ML AMP IV ONE (09:34)
[2019-11-26] MEDS ORDERED: ROPIVACAINE 0.2%-NS ON-Q PUMP 1,090 MG, EMPTY PAIN BALL 1 EACH MISCELLANE PRN (09:47)
[2019-11-26] MEDS ORDERED: PROPOFOL 10 MG/ML 20 ML VIAL IV ONE (10:08)
[2019-11-26] MEDS ORDERED: SODIUM CHLORIDE 0.9% 100 ML BAG ONE (10:08)
[2019-11-26] MEDS ORDERED: MIDAZOLAM 2 MG/2 ML VIAL ONE (10:08)
[2019-11-26] MEDS ORDERED: fentaNYL (PF) 50 MCG/ML 2 ML AMP ONE (10:08)
[2019-11-26] MEDS ORDERED: TRANEXAMIC ACID 1,000 MG/10 ML VIAL ONE (10:08)
--- NOTE | 2019-11-26 10:39 | P.ANPRN ---
Procedure Note - Anesthesia - Nerve Block Performed Right Adductor Canal Infusion Time Out Performed: Yes ([id number]) Date of Procedure: 11/26/19 Procedure Start Time: 09:34 Procedure Stop Time: 09:41 Location of Patient: PreOp Indication: Acute Post-Operative Pain, Requested by Surgeon Specifically requested for management of pain by DrPablo: Hay Hope Sedation Type: Sedate with meaningful contact maintained Preparation: Sterile Prep Position: Supine Catheter Depth at Skin (cm): 8 Catheter: Indwelling Needle Types: Pajunk Needle Gauge: 21 Ultrasound used to visualize needle placement: Yes Ultrasound used to observe medication spread: Yes Injectate: 0.5% Ropivacaine (see comment for volume) (20cc) Blood Aspirated: No Pain Paresthesia on Injection Noted: No Resistance on Injection: Normal Image Stored and Saved: Yes Events: Uneventful and Well Tolerated
[2019-11-26] MEDS ORDERED: ceFAZolin 1,000 MG in SODIUM CHLORIDE 0.9% 1,000 ML IRRIGATION ONE (10:45)
[2019-11-26] MEDS ORDERED: HYDROcodone/APAP 5-325MG 1 EACH TAB PO PRN (12:20)
[2019-11-26] MEDS ORDERED: NALOXONE 0.4 MG/ML 1 ML VIAL IV PRN (12:20)
[2019-11-26] MEDS ORDERED: HYDROmorphone 1 MG/ML 1 ML SYRINGE IVP PRN (12:20)
[2019-11-26] MEDS ORDERED: ONDANSETRON 4 MG/2 ML VIAL IVP PRN (12:20)
--- NOTE | 2019-11-26 12:20 | P.OP ---
Date of Procedure: 11/26/19 Preoperative Diagnosis: Right knee osteoarthritis Postoperative Diagnosis: Right knee osteoarthritis Procedure(s) Performed: Right total knee arthroplasty Implants: 1. Depuy attune size 7 right cruciate retaining cemented femur 2. Depuy attune size 7 fixed-bearing cemented tibial baseplate 3. Depuy attune size 7 fixed-bearing cruciate retaining 10 mm polyethylene tibial insert 4. Depuy attune 41 mm all polyethylene cemented patella Anesthesia: regional (Adductor canal catheter), local, spinal Surgeon: Hay Hope Fire Operations Forester #1: Lex Barajas Estimated Blood Loss (ml): 50 Pathology: other (Bone) Condition: stable Disposition: PACU Indications for Procedure: 64-year-old patient seen with symptomatic right knee osteoarthritis. After treatment options were discussed, he elected to proceed with total knee art hroplasty. Operative Findings: See description of procedure Description of Procedure: Patient was taken to the operative suite after having an adductor canal catheter placed by the department of anesthesia. Patient underwent a spinal anesthetic by the department of anesthesia. Patient was given preoperative IV intake antibiotics and TXA. A well-padded tourniquet was placed about the right lower extremity. The lower extremity was then prepped and draped in the normal sterile orthopedic fashion. The extremity was elevated, a tourniquet was insufflated to 300. A standard anterior incision was made sharply through skin. Dissection was taken down through the subcutaneous soft tissues down to the extensor mechanism. A medial arthrotomy was performed, patella was everted and knee was flexed. There was advanced osteoarthritis noted. I introduced my distal intramedullary femoral drill. I then introduced the distal femoral cutting jig. Hamzah BASSETT secured the cutting jig with 2 pins. I held retractors in position while Hamzah BASSETT performed the distal femoral resection through the guide area we now removed her distal femoral cutting guide. We now placed our 4-in-1 femoral cutting block and positioned and it was secured with 2 pins by Hamzah BASSETT while I held the block in position. The distal femoral finishing was now completed. A proximal tibial cutting guide was positioned. I held the guide in the appropriate position with both hands well Hamzah BASSETT inserted stabilizing pins into the guide. Proximal tibial cut was made. That proximal tibial cut exposed an interference screw in the midportion of the tibia consistent with history of previous ACL surgery. Using small osteotomes I was able to remove the interference screw without difficulty. We now placed a trial femoral component into position, along with an appropriate size tibial tray and insert. We now took the knee through range of motion and had full extension good flexion and good overall soft tissue balance noted. The patella was everted and stabilized with 2 towel clips held by Hamzah BASSETT while I performed a flush with patellar quad tendon utilizing a fresh sawblade. We templated the patella, appropriate drill holes were made. An appropriate trial patella was positioned, knee was taken through full range of motion with the patella tracking very nicely. The trial patella was removed. Drill holes were made through the femoral component. All trial components were removed after marking off the appropriate rotation of the tibia. Retractors were now positioned along the proximal tibia. An appropriate keel punch was made with the appropriate size tibial guide by myself on Hamzah BASSETT assisted by holding retractors. At this point appropriate size implants were chosen and opened. The joint was irrigated copiously with pulse lavage mechanical irrigation. The posterior capsule was infiltrated with local analgesic. The wound was irrigated with pulse lavage mechanical irrigation. We mixed antibiotic methylmethacrylate. We placed the knee into flexion. We placed multiple retractors assisted by Hamzah BASSETT to expose the proximal tibia. Once the methyl methacrylate was ready, the tibial component was cemented into place removing any excess methylmethacrylate form by both myself and Hamzah BASSETT. The femoral component was cemented into place removing the removing any excess methylmethacrylate performed by both myself and Hamzah BASSETT. We then inserted the appropriate size polyethylene tibial insert. We made sure that it was locked into position. We took the knee into full extension, and then back in a flexion making sure we had removed any excess methylmethacrylate. The patellar component was then cemented down and secured with clamp. Excess methylmethacrylate removed. We kept the knee in full extension, patellar clamp in position until methylmethacrylate had hardened. Once it had hardened the patellar clamp was removed. The knee was taken through full range of motion. The patella tracked nicely. There was good soft tissue balancing. The tourniquet was now released. Additional hemostasis was achieved via electrocautery. A second gram of TXA was given. The wound again was irrigated with pulse lavage mechanical irrigation. The superficial soft tissues were infi ltrated local analgesic. The extensor mechanism was repaired with Vicryl. We checked the repair with range of motion and it was stable. The subcutaneous soft tissues were repaired with Vicryl in layers. The skin was approximated with pernio/Dermabond. Sterile dressings were applied followed by loose web roll and Tam bandage. The patient was transferred to a bed, and taken to recovery in stable and satisfactory condition. Hamzah BASSETT assisted with this complex procedure.
--- NOTE | 2019-11-26 12:59 | XR ---
EXAMINATION TYPE: XR knee limited RT DATE OF EXAM: 11/26/2019 COMPARISON: NONE HISTORY: 64-year-old male evaluation for postoperative abnormality and alignment TECHNIQUE: 2 views FINDINGS: Images show placement of right total knee arthroplasty. Both distal femoral and proximal tibial compo nents of prosthesis are well seated without periprosthetic fracture. Alignment grossly anatomic. Ante rior soft tissue swelling with scattered soft tissue air as well as intra-articular air compatible wi th recent operation. IMPRESSION: Uncomplicated postoperative appearance right total knee arthropathy.
[2019-11-26] MEDS: HYDROcodone/APAP 5-325MG 1 EACH TAB PO PRN (15:25)
[2019-11-26] MEDS: HYDROmorphone 0.5 MG/0.5 ML SYRINGE IVP PRN ×2 (19:08→22:27)
[2019-11-26] MEDS: SENNOSIDES-DOCUSATE SODIUM 1 EACH TAB PO SCH (20:49)
[2019-11-26] MEDS: ENOXAPARIN 30 MG/0.3 ML SYRINGE SQ SCH (23:18)
[2019-11-27] MEDS: HYDROcodone/APAP 5-325MG 1 EACH TAB PO PRN (02:42)
[2019-11-27] MEDS: LACTATED RINGERS 1,000 ML IV SCH ×2 (03:46→08:46)
[2019-11-27] MEDS: HYDROmorphone 0.5 MG/0.5 ML SYRINGE IVP PRN ×3 (05:49→22:06)
[2019-11-27 06:48] LABS: Basophils % (A) 0 %; Eosinophils % (A) 0 %; HCT 38.3 % (39.0-53.0); HGB 12.4 gm/dL (13.0-17.5); Lymphocytes # (A) 1.2 k/uL (1.0-4.8); Lymphocytes % (A) 10 %; MCH 31.9 pg (25.0-35.0); MCHC 32.3 g/dL (31.0-37.0); MCV 98.9 fL (80.0-100.0); Mean Platelet Volume 6.6; Monocytes # (A) 0.8 k/uL (0-1.0); Monocytes % (A) 7 %; Neutrophils # (A) 9.4 k/uL (1.3-7.7); Neutrophils % (A) 82 %; Platelet Count 257 k/uL (150-450); RBC 3.87 m/uL (4.30-5.90); RDW 12.9 % (11.5-15.5); WBC 11.5 k/uL (3.8-10.6)
--- NOTE | 2019-11-27 08:26 | P.PN ---
Progress Note - Text The patient is status post[right ] adductor canal catheter placement. The catheter was placed for postoperative pain control, status post total [right ] arthroplasty. Ropivacaine 0.2% is infusing at[8 ] mLs per hour. The patient has no complaints of[ right] lower extremity numbness or weakness. Patient's VAS score is[2 ]-10. Assessment: Patient's adductor canal catheter is in place and working appropriately. Plan: continue infusion and adjust it as needed.
[2019-11-27] MEDS: MELOXICAM 7.5 MG TAB PO SCH (08:42)
[2019-11-27] MEDS ORDERED: HYDROcodone/APAP 7.5-325MG 1 EACH TAB PO PRN (09:56)
--- NOTE | 2019-11-27 10:04 | P.PN ---
Subjective Progress Note Date: 11/27/19 Principal diagnosis: Status post right total knee arthroplasty patient evaluated bedside today, his resting his hospital chair. He is having some increasing in pain today, he did ambulate this morning. He has utilized the IV education. Currently denies any headaches, lightheadedness, chest pain, shortness of breath, fever chills, nausea vomiting. Objective - Vital Signs Vital signs: Vital Signs Temp 97.4 F L 11/27/19 07:00 Pulse 71 11/27/19 07:00 Resp 18 11/27/19 07:00 BP 143/75 11/27/19 07:00 Pulse Ox 96 11/27/19 07:00 Intake & Output 11/26/19 11/27/19 11/27/19 18:59 06:59 18:59 Intake Total 1101 300 Output Total 50 Balance 1051 300 Weight 77.7 kg Intake: IV 1051 Intake, IV Titration 50 300 Amount Lactated Ringers 1,000 ml 50 300 @ 100 mls/hr IV .Q10H [facility] Rx#:[id number] Output: Estimated Blood Loss 50 Other: Voiding Method Toilet Urinal # Voids 3 - Exam Right lower external: Incision is clean, dry, and intact. The exofin fusion tape is in good condition. There is minimal soft tissue swelling and ecchymosis surrounding the medial and lateral aspects of the incision. Calf is soft, no tenderness with palpation. Plantar flexion, dorsiflexion, EHL, FHL are intact. Sensory exam to light touch throughout the extremity is intact, dorsal pedis pulses 2+. - Labs CBC & Chem 7: 11/27/19 05:59 Labs: Abnormal Lab Results - Last 24 Hours (Table) 11/27/19 Range/Units 05:59 WBC 11.5 H (3.8-10.6) k/uL RBC 3.87 L (4.30-5.90) m/uL Hgb 12.4 L (13.0-17.5) gm/dL Hct 38.3 L (39.0-53.0) % Neutrophils # 9.4 H (1.3-7.7) k/uL Assessment and Plan Assessment: Status post right total knee arthroplasty Plan: Pain control, will increase oral pain medication at this time DVT prophylaxis, continue current medication, plan for discharge home on aspirin 81 mg twice a day Wound care instructions were discussed Icing and elevating instructions discussed Home therapy and nursing after discharge Medical recommendations Possible discharged home today, May keep patient one additional night due to pain control. We'll reassess later this afternoon. Time with Patient: Less than 30
[2019-11-27] MEDS: ATORVASTATIN 10 MG TAB PO SCH (12:00)
[2019-11-27] MEDS: lisinopriL 5 MG TAB PO SCH (12:00)
[2019-11-27] MEDS: ENOXAPARIN 30 MG/0.3 ML SYRINGE SQ SCH ×2 (12:00→23:46)
[2019-11-27] MEDS: HYDROcodone/APAP 7.5-325MG 1 EACH TAB PO PRN ×3 (12:01→23:46)
[2019-11-27] MEDS: MULTIVITAMINS, THERA 1 EACH TAB PO SCH (12:01)
[2019-11-27] MEDS: SENNOSIDES-DOCUSATE SODIUM 1 EACH TAB PO SCH (22:07)
--- NOTE | 2019-11-27 22:35 | P.CONS ---
History of Present Illness - Reason for Consult Consult date: 11/27/19 Medical management Requesting physician: Hay Hope - Chief Complaint Right knee surgery - History of Present Illness Consultation: This is a pleasant 64-year-old patient of Dr. Bethel Grace. Chronic stable medical conditions include hypertension, hyperlipidemia, osteoarthritis,. Patient has undergone right total knee arthroplasty. This morning having pain in the same. Did work with therapy. No nausea vomiting. Did tolerate her breakfast. No chest pain or shortness breath. 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 Stopped 15 years ago. Alcohol occasional. Physical examination: VITAL SIGNS: 97.4, 71, 18, 143/75, 96% room air GENERAL: BMI 22.6, sitting up, comfortable. EYES: Pupils equal. Conjunctiva normal. HEENT: External appearance of nose and ears normal, oral cavity grossly normal. NECK: JVD not raised; masses not palpable. HEART: First and second heart sounds are normal; no edema. LUNGS: Respiratory rate normal; clear to auscultation. ABDOMEN: Soft, nontender, liver spleen not palpable, no masses palpable. PSYCH: Alert and oriented x3; mood and affect normal. MUSCULAR skeletal: Dressing over the right knee NEUROLOGICAL: Cranial nerves grossly intact; no facial asymmetry, power and sensation grossly intact. LYMPHATICS: No lymph nodes palpable in the axilla and neck INVESTIGATIONS, reviewed in the clinical context: White count 9.5 globin 12.4 platelets 257 Assessment: Right total knee arthroplasty -Hyperlipidemia -Essential hypertension -Primary osteoarthritis, bilateral Plan: Home medications resumed. Patient on Lovenox for DVT prophylaxis. Did get IV fluids. Pain control in place. Care was discussed with the patient question also. Thank you Dr. Hudson Past Medical History Past Medical History: Hyperlipidemia, Hypertension, Osteoarthritis (OA) Additional Past Medical History / Comment(s): BENIGN POSITIONAL VERTIGO. History of Any Multi-Drug Resistant Organisms: None Reported Past Surgical History: Back Surgery, Orthopedic Surgery, Tonsillectomy Additional Past Surgical History / Comment(s): acl repair rt knee with 2 screws, rt ankle repair fx with pin and screw, left hip replaced, right rotator cuff repair Past Anesthesia/Blood Transfusion Reactions: No Reported Reaction Additional Past Anesthesia/Blood Transfusion Reaction / Comm: BENIGN POSITIONAL VERTIGO Past Psychological History: No Psychological Hx Reported Smoking Status: Former smoker Past Alcohol Use History: Occasional Additional Past Alcohol Use History / Comment(s): smoker 20 years 1 1/2-2 ppd quit 15 years ago Past Drug Use History: None Reported - Past Family History Mother Family Medical History: Cancer Additional Family Medical History / Comment(s): breast Father Family Medical History: Cancer Additional Family Medical History / Comment(s): esophageal cancer Brother(s) Family Medical History: Pulmonary Embolus Medications and Allergies Home Medications Medication Instructions Recorded Confirmed Type Multivitamins, Thera [Multivitamin 1 tab PO DAILY 01/13/16 11/26/19 History (formulary)] Simvastatin [Zocor] 10 mg PO QAM 01/13/16 11/26/19 History lisinopriL [Prinivil] 5 mg PO QAM 01/13/16 11/26/19 History Aspirin [Adult Low Dose Aspirin EC] 81 mg PO DAILY 01/16/18 11/26/19 History Ubidecarenone [Co Q-10] 1 tab PO DAILY 01/16/18 11/26/19 History Allergies Allergy/AdvReac Type Severity Reaction Status Date / Time No Known Allergies Allergy Verified 11/21/19 11:03 Physical Exam Vitals: Vital Signs Temp Pulse Pulse Resp BP BP Pulse Ox 11/27/19 07:00 97.4 F L 71 18 143/75 96 11/27/19 02:22 98.2 F 89 16 116/61 95 11/26/19 19:55 98.5 F 70 16 131/79 96 11/26/19 15:36 65 134/74 97 11/26/19 15:21 76 126/80 96 11/26/19 15:05 67 115/69 96 11/26/19 14:50 67 122/71 95 11/26/19 14:35 64 125/74 97 11/26/19 14:21 67 126/74 96 11/26/19 14:07 63 135/79 96 11/26/19 13:51 68 141/81 96 11/26/19 13:37 97.5 F L 66 16 130/78 96 11/26/19 13:15 66 16 124/69 95 11/26/19 12:45 60 16 124/69 99 11/26/19 12:30 97.0 F L 66 16 118/68 99 11/26/19 11:45 59 L 16 124/69 100 Intake and Output 11/26/19 11/27/19 11/27/19 22:59 06:59 14:59 Intake Total 300 Balance 300 Intake: Intake, IV Titration 300 Amount Lactated Ringers 1,000 ml 300 @ 100 mls/hr IV .Q10H [facility] Rx#:[id number] Other: Voiding Method Toilet Toilet Urinal Urinal # Voids 2 3 Results CBC & Chem 7: 11/27/19 05:59 Labs: Abnormal Lab Results - Last 24 Hours (Table) 11/27/19 Range/Units 05:59 WBC 11.5 H (3.8-10.6) k/uL RBC 3.87 L (4.30-5.90) m/uL Hgb 12.4 L (13.0-17.5) gm/dL Hct 38.3 L (39.0-53.0) % Neutrophils # 9.4 H (1.3-7.7) k/uL
[2019-11-28] MEDS: LACTATED RINGERS 1,000 ML IV SCH (01:53)
[2019-11-28] MEDS: HYDROcodone/APAP 7.5-325MG 1 EACH TAB PO PRN ×2 (06:24→12:33)
[2019-11-28] MEDS: lisinopriL 5 MG TAB PO SCH (07:35)
[2019-11-28] MEDS: MULTIVITAMINS, THERA 1 EACH TAB PO SCH (07:35)
[2019-11-28] MEDS: MELOXICAM 7.5 MG TAB PO SCH (07:35)
[2019-11-28] MEDS: ATORVASTATIN 10 MG TAB PO SCH (07:36)
[2019-11-28 07:41] VITALS: RESP 16
[2019-11-28 08:44] VITALS: BP 141/83; PULSE 83; TEMP 99.4
[2019-11-28] MEDS ORDERED: traMADol 50 MG TAB PO SCH (09:00)
--- NOTE | 2019-11-28 10:47 | P.PN ---
Subjective Progress Note Date: 11/28/19 Principal diagnosis: Status post right total knee arthroplasty patient evaluated bedside today, his resting his hospital chair. Pain is better controlled today. Currently denies any headaches, lightheadedness, chest pain, shortness of breath, fever chills, nausea vomiting. Objective - Vital Signs Vital signs: Vital Signs Temp 99.4 F 11/28/19 07:00 Pulse 83 11/28/19 07:00 Resp 16 11/28/19 07:39 BP 141/83 11/28/19 07:00 Pulse Ox 93 L 11/28/19 07:00 Intake & Output 11/27/19 11/28/19 11/28/19 18:59 06:59 18:59 Intake Total 200 Output Total 475 475 Balance -475 -275 Intake: Oral 200 Output: Urine 475 475 Other: Voiding Method Toilet Toilet Urinal Urinal # Voids 2 1 1 - Exam Right lower external: Incision is clean, dry, and intact. The exofin fusion tape is in good condition. There is minimal soft tissue swelling and ecchymosis surrounding the medial and lateral aspects of the incision. Calf is soft, no tenderness with palpation. Plantar flexion, dorsiflexion, EHL, FHL are intact. Sensory exam to light touch throughout the extremity is intact, dorsal pedis pulses 2+. - Labs CBC & Chem 7: 11/27/19 05:59 Assessment and Plan Assessment: Status post right total knee arthroplasty Plan: Pain control, Delta 7.5 mg/325 mg discharge home on aspirin 81 mg twice a day Wound care instructions were discussed Icing and elevating instructions discussed Home therapy and nursing after discharge Medical recommendations plan for discharge home today
--- NOTE | 2019-11-28 10:51 | P.DS ---
Providers Date of admission: 11/26/2019 Expected date of discharge: 11/28/19 Attending physician: Hay Hope Consults: 11/26/19 12:20 Consult Physician Routine Consulting Provider: Bethel Grace Reason/Comments: Medical management Do you want consulting provider notified?: Yes Primary care physician: Bethel Grace [facility] Course: Date of admission: 11/26/2019 Date of discharge: 11/28/2019 Admission diagnosis: Status post right total knee arthroplasty Discharge diagnosis: Same Attending physician: Dr. Hope Surgical procedures: Right total knee arthroplasty Brief history: Patient is a 64-year-old male with a history of progressive primary right knee osteoarthritis. At this point patient has failed conservative treatment measures and has opted to proceed with a elective right total knee arthroplasty. Hospital course: Details of patient's surgery can be found in operative report. Patient tolerated the procedure well and was subsequently transported to orthopedic floor. Patient's orthopeidc and medical care was provided daily. Patient had daily laboratory tests performed for evaluation of overall blood counts. Patient had daily physical therapy to include strengthening range of motion as well as education with walker ambulation. Patient was treated with Lovenox for their postoperative DVT prophylaxis during their inpatient stay. Patient was noted to have a relatively uneventful postoperative course. Patient reported satisfactory pain control with oral pain medications by postoperative day 0. Patient showed satisfactory progress with physical therapy. Patient moved steadily through the program and had no difficulty meeting the goals by postoperative day 2. Given patient's otherwise satisfactory course and having met physical therapy goals, plan is to discharge patient home on postoperative day 2. Discharge condition/disposition: Patient will be discharged home in stable condition. Discharge medications: Instructions are given on resumption of patient's normal daily medications per primary care recommendation, in addition patient will be prescribed Dalton 7.5 mg/325 mg, Vistaril 15 mg, Colace 100mg, aspirin 81mg. Discharge instructions: 1. Wound care and infection precautions, keep incision dry and covered while showering, no lotions, creams, moisturizers. No soaking, tubs, pools, hottubs. Do not scrub over the incision. 2. Weight-bear as tolerated with walker / cane until follow-up. 3. Ice and elevate when necessary. Do not exceed 20 minutes per hour with ice pack. 4. Utilize compression sleeve until seen at first follow up appointment. 5. Visiting nursing care. 6. Home physical therapy including home CPM. 7. Pain meds and anticoagulants per prescription. 8. Pain medication has potential to cause constipation. Increase oral fluid and fiber intake. Contact primary care provider if you have not had a bowel movement within 48 hours after discharge 9. No anti-inflammatory medication until discussed at first post operative visit, this including Motrin, Aleve, Mobic, Diclofenac. 10. Follow up in office at 2 weeks postop with Hamzah Barajas PA-C 11. Follow up with your primary care doctor 7-10 days after discharge. 12. Contact [facility] with any questions, . Procedures: right total knee arthroplasty Patient Condition at Discharge: Good Plan - Discharge Summary Discharge Rx Participant: Yes New Discharge Prescriptions: New Aspirin [Adult Low Dose Aspirin EC] 81 mg PO BID #60 tablet. Docsarate [Colace] 100 mg PO DAILY #30 capsule HYDROcodone/APAP 7.5-325MG [Dalton 7.5] 1 - 2 each PO Q6HR PRN #42 tab PRN Reason: Pain hydrOXYzine pamoate [Vistaril] 25 mg PO Q6HR #30 capsule Continue lisinopriL [Prinivil] 5 mg PO QAM Multivitamins, Thera [Multivitamin (formulary)] 1 tab PO DAILY Simvastatin [Zocor] 10 mg PO QAM Ubidecarenone [Co Q-10] 1 tab PO DAILY Aspirin [Adult Low Dose Aspirin EC] 81 mg PO DAILY Discharge Medication List Multivitamins, Thera [Multivitamin (formulary)] 1 tab PO DAILY 01/13/16 [History] Simvastatin [Zocor] 10 mg PO QAM 01/13/16 [History] lisinopriL [Prinivil] 5 mg PO QAM 01/13/16 [History] Aspirin [Adult Low Dose Aspirin EC] 81 mg PO DAILY 01/16/18 [History] Ubidecarenone [Co Q-10] 1 tab PO DAILY 01/16/18 [History] Aspirin [Adult Low Dose Aspirin EC] 81 mg PO BID #60 tablet. 11/28/19 [Rx] Docusate [Colace] 100 mg PO DAILY #30 capsule 11/28/19 [Rx] HYDROcodone/APAP 7.5-325MG [Dalton 7.5] 1 - 2 each PO Q6HR PRN #42 tab 11/28/19 [Rx] hydrOXYzine pamoate [Vistaril] 25 mg PO Q6HR #30 capsule 11/28/19 [Rx] Follow up Appointment(s)/Referral(s): Bethel Grace MD [Primary Care Provider] - 11/29/19 1:45 pm [facility], [NON-STAFF] - As Needed Lex Barajas PAC [PHYSICIAN TEST RIDER] - 12/12/19 1:50 pm Activity/Diet/Wound Care/Special Instructions: Orthopedic Discharge Instructions: 1. Wound care and infection precautions, keep incision dry and covered while showering, no lotions, creams, moisturizers. No soaking, pools, hot tubs. Do not scrub over incision. 2. Weight-bear as tolerated with walker / cane until follow-up. 3. Ice and elevate when necessary. Do not exceed 20 minutes per hour with ice pack. 4. Utilize compression sleeve until seen at first follow up appointment. 5. Pain meds and anticoagulants per prescription. 6. Pain medication has potential to cause constipation. Increase oral fluid and fiber intake. Contact primary care provider if you have not had a bowel movement within 48 hours after discharge. 7. No anti-inflammatory medication until discussed at first post operative visit, this including Motrin, Aleve, Mobic, Diclofenac. 8. Follow up in office at 2 weeks postop with Hamzah Barajas PA-C 9. Follow up with your primary care doctor 7-10 days after discharge. 10. Contact [facility] with any questions, . Discharge Disposition: HOME SELF-CARE
[2019-11-28] MEDS: ENOXAPARIN 30 MG/0.3 ML SYRINGE SQ SCH (12:35)
--- NOTE | 2019-11-28 20:17 | P.PN ---
Progress Note - Text Progress Note Date: 11/28/19 - Chief Complaint Right knee surgery Consultation: This is a pleasant 64-year-old patient of Dr. Bethel Grace. Chronic stable medical conditions include hypertension, hyperlipidemia, osteoarthritis,. undergone right total knee arthroplasty. Today-some pain in the operative site. Did work with therapy. Did tolerate her breakfast. No nausea vomiting. No chest pain. Review of systems: Was done for constitutional, cardiovascular, GI, pulmonary. relevant finding as above Current medications reviewed in today's electronic records Physical examination: VITAL SIGNS: 99.4, 83, 16, 141/83, 93% room air GENERAL: sitting up, comfortable. EYES: Pupils equal. Conjunctiva normal. NECK: JVD not raised; masses not palpable. HEART: First and second heart sounds are normal; no edema. LUNGS: Respiratory rate normal; clear to auscultation. ABDOMEN: Soft, nontender, liver spleen not palpable, no masses palpable. PSYCH: Alert and oriented x3; mood and affect normal. MUSCULAR skeletal: Dressing over the right knee INVESTIGATIONS, reviewed in the clinical context: White count 9.5 globin 12.4 platelets 257 Assessment: Right total knee arthroplasty -Hyperlipidemia -Essential hypertension -Primary osteoarthritis, bilateral Plan: Doing well. Continue current medications. Follow-up with PCP. Thank you Dr. Hudson
== END 2019-11-28 13:48 | disposition home health service (06) | DRG 470 ==
LOC: OR 08:16 → 4SSUR 12:39 → OR 11-27 11:23 → 4SSUR 11-27 11:47 → OBSVTOIN 11-27 14:57
PROVIDERS: ADMIT Orthopaedic Surgery; ATTEND Orthopaedic Surgery
PROC: 0SRC0J9 Replacement of Right Knee Joint with Synthetic Substitute, Cemented, Open Approach (ICD-10-PCS; principal; 2019-11-26 10:05)
DX: M17.11 Unilateral primary osteoarthritis, right knee (principal); E78.5 Hyperlipidemia, unspecified; M21.061 Valgus deformity, not elsewhere classified, right knee; I10 Essential (primary) hypertension; H81.10 Benign paroxysmal vertigo, unspecified ear; K21.9 Gastro-esophageal reflux disease without esophagitis; Z79.82 Long term (current) use of aspirin; Z79.899 Other long term (current) drug therapy; Z96.642 Presence of left artificial hip joint; Z87.891 Personal history of nicotine dependence; Z90.89 Acquired absence of other organs; Z98.890 Other specified postprocedural states; Z87.39 Personal history of other diseases of the musculoskeletal system and connective tissue; Z80.0 Family history of malignant neoplasm of digestive organs; Z80.3 Family history of malignant neoplasm of breast; Z83.2 Family history of diseases of the blood and blood-forming organs and certain disorders involving the immune mechanism
CPT/HCPCS: 64448; 76942; 85025; 88300

== ENCOUNTER 2020-04-07 07:50 | Day surgery (SDC) | payer BC, MEDICARE ==
[2020-04-03 16:18] VITALS: BMI 22.9
[~2020-04-07 07:50] MED LIST changes: -ACETAMINOPHEN TAB 500 MG TAB PO ONE; +ACETAMINOPHEN TAB 500 MG TAB PO PRN; +HEPARIN SODIUM,PORCINE 5,000 UNIT/ML 1 ML VIAL SQ PRN; -MELOXICAM 7.5 MG TAB PO ONE; -ROPIVACAINE 246.25 MG, EPINEPHrine 0.5 MG, KETOROLAC 30 MG, cloNIDine HCL/PF 80 MCG, WA... MISCELLANE ONE; -TRANEXAMIC ACID 1,000 MG in SODIUM CHLORIDE 0.9% 100 ML IVPB ONE
[2020-04-07] MEDS ORDERED: ONDANSETRON 4 MG/2 ML VIAL ONE (09:10)
[2020-04-07 09:15] LABS: Basophils % (A) 0 %; Eosinophils # (A) 0.2 k/uL (0-0.7); Eosinophils % (A) 3 %; HCT 41.1 % (39.0-53.0); HGB 13.7 gm/dL (13.0-17.5); Lymphocytes # (A) 1.2 k/uL (1.0-4.8); Lymphocytes % (A) 19 %; MCH 30.4 pg (25.0-35.0); MCHC 33.2 g/dL (31.0-37.0); MCV 91.6 fL (80.0-100.0); Mean Platelet Volume 6.4; Monocytes # (A) 0.4 k/uL (0-1.0); Monocytes % (A) 7 %; Neutrophils # (A) 4.5 k/uL (1.3-7.7); Neutrophils % (A) 70 %; Platelet Count 246 k/uL (150-450); RBC 4.49 m/uL (4.30-5.90); RDW 13.2 % (11.5-15.5); WBC 6.4 k/uL (3.8-10.6)
[2020-04-07] MEDS ORDERED: MIDAZOLAM 2 MG/2 ML VIAL IVP ONE ×2 (09:32→09:38)
[2020-04-07] MEDS ORDERED: LACTATED RINGERS 1,000 ML IV ONE ×2 (09:52→12:21)
[2020-04-07] MEDS ORDERED: DEXAMETHASONE SOD PHOS (MDV) 100 MG/10 ML VIAL IVP ONE (09:54)
[2020-04-07] MEDS ORDERED: LIDOCAINE 1% INJ 10MG/ML (20 ML MDV) ONE (10:20)
[2020-04-07] MEDS ORDERED: NEOSTIGMINE 1 MG/ML 10 ML VIAL ONE (10:20)
[2020-04-07] MEDS ORDERED: PROPOFOL 10 MG/ML 20 ML VIAL IV ONE (10:20)
[2020-04-07] MEDS ORDERED: ROCURONIUM 10 MG/ML (5 ML VIAL) IV ONE (10:20)
[2020-04-07] MEDS ORDERED: fentaNYL (PF) 50 MCG/ML 2 ML AMP ONE (10:20)
[2020-04-07] MEDS ORDERED: ROPIVACAINE 5 MG/ML 30 ML VIAL ONE (10:20)
[2020-04-07] MEDS ORDERED: SUCCINYLCHOLINE CHLORIDE 100 MG/5 ML SYR IV ONE (10:20)
[2020-04-07] MEDS ORDERED: GLYCOPYRROLATE 0.2 MG/ML 2 ML VIAL ONE (10:20)
[2020-04-07] MEDS ORDERED: BUPIVACAINE-EPI 0.5%-1:200,000 10 ML VIAL SQ ONE (10:25)
--- NOTE | 2020-04-07 11:05 | P.ANPRN ---
Procedure Note - Anesthesia - Nerve Block Performed Right Erector Spinae Single Time Out Performed: Yes Date of Procedure: 04/07/20 Procedure Start Time: :31 Procedure Stop Time: :39 Location of Patient: PreOp Indication: Acute Post-Operative Pain, Requested by Surgeon Sedation Type: Sedate with meaningful contact maintained Preparation: Sterile Prep Position: Prone Needle Types: Pajunk Needle Gauge: 21 Ultrasound used to visualize needle placement: Yes Ultrasound used to observe medication spread: Yes Blood Aspirated: No Pain Paresthesia on Injection Noted: No Resistance on Injection: Normal Image Stored and Saved: Yes Events: Uneventful and Well Tolerated (ropi .25% 30cc)
[2020-04-07] MEDS ORDERED: PROMETHAZINE 25 MG TAB PO PRN (11:49)
[2020-04-07] MEDS ORDERED: ONDANSETRON 4 MG/2 ML VIAL IVP PRN (11:49)
[2020-04-07] MEDS ORDERED: TAMSULOSIN 0.4 MG CAP.ER.24H PO STA (11:53)
--- NOTE | 2020-04-07 11:53 | P.OP ---
Date of Procedure: 04/07/20 Procedure(s) Performed: PREOPERATIVE DIAGNOSIS: Right inguinal hernia POSTOPERATIVE DIAGNOSIS: Same PROCEDURE: Laparoscopic repair right inguinal hernia with the da Jannie robot assistance with mesh SURGEON: Federico EBL: Minimal ANESTHESIA: General COMPLICATIONS: None OPERATIVE PROCEDURE: Patient was placed in the operating table in the supine position. The patient was placed under general anesthesia. The abdomen was prepped and draped in usual sterile fashion. A small curvilinear supraumbilical incision was made. The fascia was retracted anteriorly with Robina forceps. The Veress needle was inserted. The saline drop test was normal. Insufflation took place to 15 mmHg. An 8 mm trocar was placed into the peritoneal cavity. 2 additional 8 mm trochars were placed in the right upper quadrant and left upper quadrant under visualization. The robotic arms were then brought in and docked into place. The fenestrated bipolar was used in the left arm and the laparoscopic lurdes was utilized in the right arm. A 30 8 mm scope was used in the up position. The peritoneal cavity was inspected. The patient had a moderate sized indirect hernia on the right-hand side. No hernia on the left was noted. The peritoneum was incised in a horizontal fashion cephalad to the internal inguinal ring. Following that careful dissection of the preperitoneal space took place. This took place using both electrocautery, sharp dissection but primarily blunt dissection. Visualization of the pubic tubercle and Deejay's ligament took place medially. Full dissection took place laterally as well. The hernia sac was fully dissected. Once we had adequate space the extra-large Bard 3-D mesh was advanced into the preperitoneal space and flattened out appropriately to cover all potential hernia sites. No sutures were used. The peritoneal defect was then closed using a locking 2-0 VLok suture. The hernia sac was incorporated into our peritoneal closure. The pneumoperitoneum was then evacuated. The skin of all 3 sites was closed using a 4-0 Monocryl stitch. Skin glue was then applied. DISPOSITION: Stable to recovery room
[2020-04-07 11:56] VITALS: TEMP 98.5
[2020-04-07] MEDS ORDERED: ACETAMINOPHEN TAB 325 MG TAB PO SCH (12:00)
[2020-04-07] MEDS ORDERED: HYDROmorphone 1 MG/ML 1 ML SYRINGE IVP ONE ×2 (12:00→12:04)
[2020-04-07] MEDS ORDERED: ONDANSETRON 4 MG/2 ML VIAL IVP ONE (12:11)
[2020-04-07 12:56] VITALS: RESP 16
[2020-04-07 12:57] VITALS: PULSE 71
[2020-04-07 13:19] VITALS: BP 156/91
[2020-04-07] MEDS ORDERED: IBUPROFEN 600 MG TAB PO SCH (15:00)
== END 2020-04-07 13:47 | disposition home or self-care (01) ==
LOC: OR 07:50
PROVIDERS: ATTEND Surgery
DX: K40.90 Unilateral inguinal hernia, without obstruction or gangrene, not specified as recurrent (principal); I10 Essential (primary) hypertension; Z98.890 Other specified postprocedural states; Z90.89 Acquired absence of other organs; Z80.0 Family history of malignant neoplasm of digestive organs; Z80.3 Family history of malignant neoplasm of breast; Z79.82 Long term (current) use of aspirin; Z79.899 Other long term (current) drug therapy
CPT/HCPCS: 49650; S2900; 64461; 64999; 76942; 85025

== ENCOUNTER 2020-09-06 08:46 | Emergency (ER) | payer BC, MEDICARE ==
[2020-09-06 08:53] VITALS: PULSE 66; RESP 18; TEMP 97.4
--- NOTE | 2020-09-06 09:24 | ED ---
General Adult HPI - General Chief complaint: Eye Problems Stated complaint: face pain Time Seen by Provider: 09/06/20 08:55 Source: patient Mode of arrival: ambulatory Limitations: no limitations - History of Present Illness Initial comments: 65-year-old male with a past medical history of hyperlipidemia, hypertension, BPV, who presents to the emergency room for a chief complaint of left-sided facial pressure. Patient reports that he has pressure in the maxillary area of his face for the past week or so. Patient states he has had postnasal drip with this. Patient denies ear pain or headaches. Denies fevers or chills.patient was sent in by primary care to check intraocular pressure is a did not have a Ronak-Pen. Patient has no other complaints at this time including shortness of breath, chest pain, abdominal pain, nausea or vomiting, headache, or visual changes. - Related Data Home Medications Medication Instructions Recorded Confirmed Multivitamins, Thera [Multivitamin 1 tab PO DAILY 01/13/16 04/07/20 (formulary)] Simvastatin [Zocor] 10 mg PO QAM 01/13/16 04/07/20 lisinopriL [Prinivil] 5 mg PO QAM 01/13/16 04/07/20 Aspirin [Adult Low Dose Aspirin EC] 81 mg PO DAILY 01/16/18 04/07/20 Ubidecarenone [Co Q-10] 1 tab PO DAILY 01/16/18 04/07/20 Ascorbic Acid [Vitamin C] 1,000 mg PO DAILY 04/03/20 04/07/20 Cholecalciferol [Vitamin D3 (25 50 mcg PO DAILY 04/03/20 04/07/20 Mcg = 1000 Iu)] Cyanocobalamin [Vitamin B-12] 200 mcg PO DAILY 04/03/20 04/07/20 Glucosam/Porfirio-Msm1/C/Luís/Bosw 2 each PO DAILY 04/03/20 04/07/20 [Zpuymjjwzie-Nnlcirlswbk-EVV Tb] Zinc Gluconate [Zinc] 50 mg PO DAILY 04/03/20 04/07/20 Previous Rx's Medication Instructions Recorded oxyCODONE HCL [OxyIR] 5 mg PO Q6H PRN 3 Days #6 tab 04/07/20 Amoxicillin/Potassium Clav 1 tab PO Q12HR #20 tab 09/06/20 [Augmentin 875-125 Tablet] Allergies Allergy/AdvReac Type Severity Reaction Status Date / Time No Known Allergies Allergy Verified 09/06/20 08:48 Review of Systems ROS Statement: Those systems with pertinent positive or pertinent negative responses have been documented in the HPI. ROS Other: All systems not noted in ROS Statement are negative. Past Medical History Past Medical History: Hyperlipidemia, Hypertension, Osteoarthritis (OA) Additional Past Medical History / Comment(s): BENIGN POSITIONAL VERTIGO. Rt inguinal hernia, wears a truss. Varicose vein Rt calf. History of Any Multi-Drug Resistant Organisms: None Reported Past Surgical History: Back Surgery, Hernia Repair, Joint Replacement, Orthopedic Surgery, Tonsillectomy Additional Past Surgical History / Comment(s): 1989 Ruptured disc surgery. acl repair rt knee with 2 screws - 1 screw removed 11/2019, rt ankle repair fx with pin and screw. Total Lt hip. Total Rt knee 11/2019 Past Anesthesia/Blood Transfusion Reactions: No Reported Reaction Additional Past Anesthesia/Blood Transfusion Reaction / Comment(s): (Hx BENIGN POSITIONAL VERTIGO) Past Psychological History: No Psychological Hx Reported Smoking Status: Former smoker Past Alcohol Use History: Occasional Past Drug Use History: None Reported - Past Family History Mother Family Medical History: Cancer Additional Family Medical History / Comment(s): breast Father Family Medical History: Cancer Additional Family Medical History / Comment(s): esophageal cancer Brother(s) Family Medical History: Pulmonary Embolus Additional Family Medical History / Comment(s): Hx Covid, 05/2019 General Exam Limitations: no limitations General appearance: alert, in no apparent distress Head exam: Present: atraumatic, normocephalic, normal inspection Eye exam: Present: normal appearance, PERRL, EOMI. Absent: scleral icterus, conjunctival injection, periorbital swelling ENT exam: Present: normal exam, normal oropharynx (Uvula midline, no tonsillar exudates bilaterally), mucous membranes moist, TM's normal bilaterally, normal external ear exam, other (Patient does have pressure to palpation of the left maxillary sinus. No erythema or edema.) Neck exam: Present: normal inspection, full ROM. Absent: tenderness, meningismus, lymphadenopathy Respiratory exam: Present: normal lung sounds bilaterally. Absent: respiratory distress, wheezes, rales, rhonchi, stridor Cardiovascular Exam: Present: regular rate, normal rhythm, normal heart sounds. Absent: systolic murmur, diastolic murmur, rubs, gallop, clicks Course Vital Signs 09/06/20 08:48 Temperature 97.4 F L Pulse Rate 66 Respiratory 18 Rate Blood Pressure 192/106 O2 Sat by Pulse 99 Oximetry Medical Decision Making - Medical Decision Making Vitals are stable. Patient is hypertensive. Patient has a history of hypertension and did not take his lisinopril yet today. Patient states he was just at primary care and his blood pressure was 120/80. Patient wishes to take his lisinopril at home when he gets back. He does not have any symptoms such as headache, chest pain, shortness of breath. On physical exam patient does have pressure to palpation of the macular sinus. No significant pain. No erythema or edema. Patient does also have postnasal drip. At this time patient likely has a sinusitis. He will be treated with antibiotics. He does have Flonase and Thu at home that he will take. Discussed that he should follow up with primary care next week to ensure resolution of symptoms. His symptoms are worsening he will return here to the emergency room. He can also follow up with ENT as needed. He states his sees Dr. Sullivan if he decides to go he will call him. He will return here for any worsening symptoms. Disposition Clinical Impression: Sinusitis Narrative: maxillary pressure Disposition: HOME SELF-CARE Condition: Good Additional Instructions: Take Flonase twice a day for one week. Take antibiotic as directed. Take Claritin, Zyrtec, or Thu once daily. Follow up with primary care if symptoms are not improving. Return to the emergency room if symptoms are worsening. You can also follow up with ENT as needed. Prescriptions: Amoxicillin/Potassium Clav [Augmentin 875-125 Tablet] 1 tab PO Q12HR #20 tab Is patient prescribed a controlled substance at d/c from ED?: No Referrals: Jeff Grace MD [Primary Care Provider] - 1-2 days Jr Haile DO [Doctor of Osteopathic Medicine] - 1-2 days Time of Disposition: 09:23
[2020-09-06 09:47] VITALS: BP 164/96
== END 2020-09-06 09:45 | disposition home or self-care (01) ==
LOC: EC 08:46
DX: J32.9 Chronic sinusitis, unspecified (principal); I10 Essential (primary) hypertension; E78.5 Hyperlipidemia, unspecified; M19.90 Unspecified osteoarthritis, unspecified site; Z87.891 Personal history of nicotine dependence; Z79.82 Long term (current) use of aspirin; Z79.899 Other long term (current) drug therapy
CPT/HCPCS: 99283

== ENCOUNTER → 2020-12-03 | Outpatient (CLI) | payer BC, MEDICARE ==
[~2020-12-03] MED LIST changes: -ACETAMINOPHEN TAB 500 MG TAB PO PRN; +CASIRIVIMAB (REGN10933) (EUA) 600 MG, IMDEVIMAB (REGN10987) (EUA) 600 MG in SODIUM CHLO... IVPB ONE; -HEPARIN SODIUM,PORCINE 5,000 UNIT/ML 1 ML VIAL SQ PRN; +SODIUM CHLORIDE 0.9% 50 ML IVPB ONE; +SODIUM CHLORIDE 0.9% 500 ML 500 ML in EMPTY BAG 1 BAG IV PRN
--- NOTE | 2020-12-03 10:11 | ED ---
URI HPI - General Source: patient, RN notes reviewed Mode of arrival: ambulatory Limitations: no limitations <Markie Murcia - Last Filed: 12/03/20 10:17> <Barby Tobar - Last Filed: 12/14/20 14:07> - General Chief Complaint: Upper Respiratory Infection Stated Complaint: covid+ Time Seen by Provider: 12/03/20 09:59 - History of Present Illness Initial Comments: 65-year-old male presents emergency Department with chief complaint of COVID-19. Patient states symptoms started Tuesday states that he tested positive results yesterday. Patient states he took the test 2 days ago. Patient denies any significant issues he states he just feels denies week, mild aches mild cough mild runny nose. Patient has been priorly vaccinated with fintonic vaccine. Patient denies chest pain palpitations shortness of breath. (Markie Murcia) - Related Data Home Medications Medication Instructions Recorded Confirmed Multivitamins, Thera [Multivitamin 1 tab PO DAILY 01/13/16 12/03/20 (formulary)] Simvastatin [Zocor] 10 mg PO QAM 01/13/16 12/03/20 lisinopriL [Prinivil] 5 mg PO QAM 01/13/16 12/03/20 Aspirin [Adult Low Dose Aspirin EC] 81 mg PO DAILY 01/16/18 12/03/20 Ubidecarenone [Co Q-10] 1 tab PO DAILY 01/16/18 12/03/20 Ascorbic Acid [Vitamin C] 1,000 mg PO DAILY 04/03/20 12/03/20 Cholecalciferol [Vitamin D3 (25 50 mcg PO DAILY 04/03/20 12/03/20 Mcg = 1000 Iu)] Cyanocobalamin [Vitamin B-12] 200 mcg PO DAILY 04/03/20 12/03/20 Glucosam/Porfirio-Msm1/C/Luís/Bosw 2 each PO DAILY 04/03/20 12/03/20 [Iuzbjzleuqo-Rhrdyecjhnf-KCV Tb] Zinc Gluconate [Zinc] 50 mg PO DAILY 04/03/20 12/03/20 Previous Rx's Medication Instructions Recorded oxyCODONE HCL [OxyIR] 5 mg PO Q6H PRN 3 Days #6 tab 04/07/20 Amoxicillin/Potassium Clav 1 tab PO Q12HR #20 tab 09/06/20 [Augmentin 875-125 Tablet] Allergies Allergy/AdvReac Type Severity Reaction Status Date / Time No Known Allergies Allergy Verified 12/03/20 10:57 Review of Systems ROS Other: All systems not noted in ROS Statement are negative. <Markie Murcia - Last Filed: 12/03/20 10:17> ROS Other: All systems not noted in ROS Statement are negative. <Barby Tobar - Last Filed: 12/14/20 14:07> ROS Statement: Those systems with pertinent positive or pertinent negative responses have been documented in the HPI. Past Medical History Past Medical History: Hyperlipidemia, Hypertension, Osteoarthritis (OA) Additional Past Medical History / Comment(s): BENIGN POSITIONAL VERTIGO. Rt inguinal hernia, wears a truss. Varicose vein Rt calf. History of Any Multi-Drug Resistant Organisms: None Reported Past Surgical History: Back Surgery, Hernia Repair, Joint Replacement, Orthopedic Surgery, Tonsillectomy Additional Past Surgical History / Comment(s): 1989 Ruptured disc surgery. acl repair rt knee with 2 screws - 1 screw removed 11/2019, rt ankle repair fx with pin and screw. Total Lt hip. Total Rt knee 11/2019 Past Anesthesia/Blood Transfusion Reactions: No Reported Reaction Additional Past Anesthesia/Blood Transfusion Reaction / Comment(s): (Hx BENIGN POSITIONAL VERTIGO) Past Psychological History: No Psychological Hx Reported Smoking Status: Former smoker Past Alcohol Use History: Occasional Past Drug Use History: None Reported - Past Family History Mother Family Medical History: Cancer Additional Family Medical History / Comment(s): breast Father Family Medical History: Cancer Additional Family Medical History / Comment(s): esophageal cancer Brother(s) Family Medical History: Pulmonary Embolus Additional Family Medical History / Comment(s): Hx Covid, 05/2019 <Markie Murcia - Last Filed: 12/03/20 10:17> General Exam Limitations: no limitations <Markie Murcia - Last Filed: 12/03/20 10:17> Course Vital Signs 12/03/20 12/03/20 12/03/20 09:45 10:59 11:43 Temperature 98 F 97.9 F Pulse Rate 82 79 61 Respiratory 18 16 16 Rate Blood Pressure 121/80 99/65 145/66 O2 Sat by Pulse 97 96 96 Oximetry 12/03/20 12:38 Temperature Pulse Rate 73 Respiratory 16 Rate Blood Pressure 117/71 O2 Sat by Pulse 94 L Oximetry Medical Decision Making <Markie Murcia - Last Filed: 12/03/20 10:17> <Barby Tobar - Last Filed: 12/14/20 14:07> - Medical Decision Making Patient RSV monoclonal he otherwise be discharged in stable condition: Present discussed. (Markie Murcia) I was available for consultation in the emergency department. The history and physical exam were done by the midlevel provider. I was consulted for this patients care. I reviewed the case with the midlevel provider and based on their presentation of the patient, I agree with the assessment, medical decision making and plan of care as documented. Chart was dictated using Break30 dictation software. Attempts were made to correct any dictation errors however some typographical errors may persist. (Braby Tobar) Disposition Is patient prescribed a controlled substance at d/c from ED?: No Time of Disposition: 10:11 <Markie Murcia - Last Filed: 12/03/20 10:17> <Barby Tobar - Last Filed: 12/14/20 14:07> Clinical Impression: COVID-19 Disposition: HOME SELF-CARE Condition: Stable
[2020-12-03 11:03] VITALS: RESP 16; TEMP 97.9
[2020-12-03 12:42] VITALS: BP 117/71; PULSE 73
== END | disposition home or self-care (01) ==
LOC: PROCWHC3 09:32 → EC 09:32 → EDSTATUS 10:38
PROVIDERS: ATTEND Physician Assistant
DX: U07.1 COVID-19 (principal); E78.5 Hyperlipidemia, unspecified; I10 Essential (primary) hypertension; M19.90 Unspecified osteoarthritis, unspecified site; Z87.891 Personal history of nicotine dependence; Z79.899 Other long term (current) drug therapy
CPT/HCPCS: 96360; Q0243; M0243; 96361

== ENCOUNTER → 2021-01-09 | Outpatient (CLI) | payer BC, MEDICARE ==
--- NOTE | 2021-01-09 18:23 | US ---
EXAMINATION TYPE: US scrotum with doppler. Grayscale and color Doppler Duplex imaging performed of stalin murphy scrotum. 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 History of Left mass, patient u nsure if cyst or vessel, states no pain or mass felt today. EXAM MEASUREMENTS: TESTICLES: Right Testicle: 4.2 x 3.0 x 2.2 cm Left Testicle: 4.6 x 2.9 x 2.1 cm EPIDIDYMIS HEAD: Right Epididymis: 0.9 x 1.1 x 0.9 cm Left Epididymis: 1.9 x 1.7 x 2.7 cm Doppler performed to assess for testicular vascularity; good bilateral color flow and waveforms are s een. There is no evidence of testicular torsion. Presence of hydroceles: Small amount of fluid seen bilateral Presence of varicoceles: Prominent vessel seen on left near epididymis head Left Epididymis seen with multiple cysts IMPRESSION: Left epididymal cysts. Small amount of hydrocele seen bilaterally.
== END | disposition home or self-care (01) ==
LOC: RADUSWWP 16:43
PROVIDERS: ATTEND Family Medicine
DX: N50.3 Cyst of epididymis (principal); N43.3 Hydrocele, unspecified
CPT/HCPCS: 76870; 93975

== ENCOUNTER 2022-01-23 11:28 | Emergency (ER) | payer BC, MEDICARE ==
[2022-01-23 12:07] VITALS: BP 141/89; PULSE 72; RESP 18; TEMP 98.2
--- NOTE | 2022-01-23 12:47 | ED ---
URI HPI - General Chief Complaint: Upper Respiratory Infection Stated Complaint: Covid+,Cough Time Seen by Provider: 01/23/22 12:16 Source: patient Mode of arrival: ambulatory - History of Present Illness Initial Comments: Patient is a 66 year old male who presents to the ED with a chief complaint of URI symptoms. Symptoms started 3 days ago. Initially dry cough and congestion w hich has resolved. Patient states he feels well other than a mild sore throat. Family told him he should come in for evaluation after positive COVID-19 test at home today. He denies chest pain and shortness of breath. No history of asthma and COPD. - Related Data Home Medications Medication Instructions Recorded Confirmed Multivitamins, Thera [Multivitamin 1 tab PO DAILY 01/13/16 12/03/20 (formulary)] Simvastatin [Zocor] 10 mg PO QAM 01/13/16 12/03/20 lisinopriL [Prinivil] 5 mg PO QAM 01/13/16 12/03/20 Aspirin [Adult Low Dose Aspirin EC] 81 mg PO DAILY 01/16/18 12/03/20 Ubidecarenone [Co Q-10] 1 tab PO DAILY 01/16/18 12/03/20 Ascorbic Acid [Vitamin C] 1,000 mg PO DAILY 04/03/20 12/03/20 Cholecalciferol [Vitamin D3 (25 50 mcg PO DAILY 04/03/20 12/03/20 Mcg = 1000 Iu)] Cyanocobalamin [Vitamin B-12] 200 mcg PO DAILY 04/03/20 12/03/20 Glucosam/Porfirio-Msm1/C/Luís/Bosw 2 each PO DAILY 04/03/20 12/03/20 [Aitoqdwprnq-Nwbxyrkkwec-JLT Tb] Zinc Gluconate [Zinc] 50 mg PO DAILY 04/03/20 12/03/20 Previous Rx's Medication Instructions Recorded oxyCODONE HCL [OxyIR] 5 mg PO Q6H PRN 3 Days #6 tab 04/07/20 Amoxicillin/Potassium Clav 1 tab PO Q12HR #20 tab 09/06/20 [Augmentin 875-125 Tablet] Benzocaine/Menthol Lozeng [Cepacol 1 each MUCOUS MEM Q6HR #12 lozenge 01/23/22 lozenge] Allergies Allergy/AdvReac Type Severity Reaction Status Date / Time No Known Allergies Allergy Verified 01/23/22 12:07 Review of Systems ROS Statement: Those systems with pertinent positive or pertinent negative responses have been documented in the HPI. ROS Other: All systems not noted in ROS Statement are negative. Past Medical History Past Medical History: Hyperlipidemia, Hypertension, Osteoarthritis (OA) Additional Past Medical History / Comment(s): BENIGN POSITIONAL VERTIGO. Rt inguinal hernia, wears a truss. Varicose vein Rt calf. History of Any Multi-Drug Resistant Organisms: None Reported Past Surgical History: Back Surgery, Hernia Repair, Joint Replacement, Orthopedic Surgery, Tonsillectomy Additional Past Surgical History / Comment(s): 1989 Ruptured disc surgery. acl repair rt knee with 2 screws - 1 screw removed 11/2019, rt ankle repair fx with pin and screw. Total Lt hip. Total Rt knee 11/2019. eye sx at [facility] Past Anesthesia/Blood Transfusion Reactions: No Reported Reaction Additional Past Anesthesia/Blood Transfusion Reaction / Comment(s): (Hx BENIGN POSITIONAL VERTIGO) Past Psychological History: No Psychological Hx Reported Smoking Status: Former smoker Past Alcohol Use History: None Reported Past Drug Use History: None Reported - Past Family History Mother Family Medical History: Cancer Additional Family Medical History / Comment(s): breast Father Family Medical History: Cancer Additional Family Medical History / Comment(s): esophageal cancer Brother(s) Family Medical History: Pulmonary Embolus Additional Family Medical History / Comment(s): Hx Covid, 05/2019 General Exam General appearance: alert, in no apparent distress Head exam: Present: atraumatic, normocephalic, normal inspection Eye exam: Present: normal appearance, PERRL, EOMI. Absent: scleral icterus, conjunctival injection, periorbital swelling Respiratory exam: Present: normal lung sounds bilaterally. Absent: respiratory distress, wheezes, rales, rhonchi, stridor Cardiovascular Exam: Present: regular rate, normal rhythm, normal heart sounds. Absent: systolic murmur, diastolic murmur, rubs, gallop, clicks Neurological exam: Present: alert, oriented X3, CN II-XII intact Psychiatric exam: Present: normal affect, normal mood Skin exam: Present: warm, dry, intact, normal color. Absent: rash Course Vital Signs 01/23/22 12:03 Temperature 98.2 F Pulse Rate 72 Respiratory 18 Rate Blood Pressure 141/89 O2 Sat by Pulse 98 Oximetry Medical Decision Making - Medical Decision Making This is a 66-year-old male presenting with mild sore throat. COVID-19 is detected. Patient looks and feels well, normal lung sounds. He will be discharged with cepakol lozenges and conservative management. Dr. Gray is my attending. - Lab Data Lab Results 01/23/22 Range/Units 12:11 Coronavirus (PCR) Detected A (Not Detectd) Disposition Clinical Impression: COVID-19 Disposition: HOME SELF-CARE Condition: Good Instructions (If sedation given, give patient instructions): Coronavirus Disease 2019 (COVID-19) Additional Instructions: Use throat lozenges for sore throat. Take Motrin or Tylenol for any fever or body aches. Increase water intake. Quarantine home for 5 days. Return to the emergency department if you experience new, concerning, or worsening symptoms Prescriptions: Benzocaine/Menthol Lozeng [Cepacol lozenge] 1 each MUCOUS MEM Q6HR #12 lozenge Is patient prescribed a controlled substance at d/c from ED?: No Referrals: Bethel Grace MD [Primary Care Provider] - 1-2 days Time of Disposition: 12:47
== END 2022-01-23 12:59 | disposition home or self-care (01) ==
LOC: EC 11:28
DX: U07.1 COVID-19 (principal); I10 Essential (primary) hypertension; E78.5 Hyperlipidemia, unspecified; Z79.899 Other long term (current) drug therapy; Z90.89 Acquired absence of other organs; Z87.891 Personal history of nicotine dependence
CPT/HCPCS: 87635; 99283